=== PATIENT | male | born 1960 | race Caucasian/White ===

== ENCOUNTER 2016-11-29 06:17 | Day surgery (SDC) ==
[2016-11-29 08:24] LABS: IRON SATURATION 11 %; TIBC 222 ug/dL; TOTAL IRON 25 ug/dL (53-167); UNBOUND IRON 197 ug/dL (112-346)
[2016-11-29 08:37] LABS: PROTIME 10.2 Seconds (9.2-11.7)
[2016-11-29] MEDS ORDERED: ALBUMIN 25% IV ONE (12:00)
[2016-11-29 12:24] VITALS: BP 118/75
[2016-11-29 13:34] LABS: DIFF NEEDED? YES; WBC BF 363 /cumm
[2016-11-29 13:50] LABS: TOTAL PROT BODY FLUID 3.1 g/dL
[2016-11-29 13:56] LABS: MONOS 12 %; POLYS 88 %
--- NOTE | 2016-11-29 16:17 | Diag Imaging Result Document ---
PROCEDURE NAME: US PARACENTESIS - 11/29/2016 ULTRASOUND-GUIDED PARACENTESIS: COMPARISON: None. FINDINGS: The risks and benefits of the procedure were discussed with the patient. All questions were answered. Written and verbal informed consent was obtained. The right lower quadrant was chosen for aspiration. Ultrasound scanning demonstrated moderate to large ascites. Overlying skin was prepped and draped in sterile fashion. Anesthesia was achieved with injection of 7 mL of 1% lidocaine. The paracentesis catheter was advanced without difficulty until the return of ascites fluid. 7.5 L were withdrawn. The catheter was removed intact. The patient reported no symptoms from the procedure. IMPRESSION: Successful and uncomplicated ultrasound-guided paracentesis.
[2016-11-30 16:28] LABS: HEPATITIS PROFILE ACUTE SEE COMMENTS (())
== END 2016-11-29 12:30 | disposition home or self-care (01) ==
LOC: US 06:17
PROVIDERS: ATTEND Internal Medicine Gastroenterology
DX: R18.8 Other ascites (principal); R10.9 Unspecified abdominal pain; I10 Essential (primary) hypertension; Z79.899 Other long term (current) drug therapy; Z79.82 Long term (current) use of aspirin
CPT/HCPCS: 49083; 80074; 82042; 82150; 82390; 82728; 82945; 83516; 83540; 83550; 84157; 85610; 85730; 86038; 86255; 87070; 87205; 89051; P9047

== ENCOUNTER 2016-12-03 08:17 | Inpatient (IN) ==
[2016-12-03 09:14] LABS: MANUAL DIFF NEEDED? NO
[2016-12-03 09:22] LABS: BASO% 0.2 % (0.0-0.8); EOS# 0.16 X1000 (0.0-0.7); EOS% 1.9 % (0.0-10.0); HEMATOCRIT 44.2 % (42.0-52.0); HEMOGLOBIN 15.5 g/dL (14.0-18.0); IMM GRAN# 0.02 X1000 (0.0-0.04); IMM GRAN% 0.2 % (0.0-0.5); LYMPH# 0.89 X1000 (1.2-3.4); LYMPH% 10.8 % (20.5-51.1); MCH 30.9 PG (27-31); MCHC 35.1 g/dL (33-37); MONO# 1.26 X1000 (0.11-0.59); MONO% 15.3 % (1.7-9.3); MPV 9.4 FL (7.4-10.4); NEUT% 71.6 % (42.2-75.2); PLT 419 X1000 (130-400); RBC 5.02 XMIL (4.7-6.1)
[2016-12-03] MEDS ORDERED: ZOFRAN IV ONE (09:30)
--- NOTE | 2016-12-03 09:35 | PROVIDER DOCUMENTATION ---
HPI-Abdominal Pain/GI Problem - General Chief Complaint: Abdominal Pain Stated Complaint: ABD PAIN Time Seen by Provider: 12/03/16 09:09 Source: patient Allergies/Adverse Reactions: Patient Allergies Allergy/AdvReac Type Severity Reaction Status Date / Time No Known Allergies Allergy Verified 12/03/16 09:22 Home Medications: Home Medication List Medication Instructions Recorded Confirmed Last Taken Type Labetalol [Trandate] 200 mg PO BID 02/20/15 12/03/16 12/03/16 History Lisinopril 20 mg PO BID 02/20/15 12/03/16 12/03/16 History Amlodipine [Norvasc] 10 mg PO DAILY 11/29/16 12/03/16 12/02/16 History Aspirin 81 mg PO DAILY 11/29/16 12/03/16 11/22/16 History Gabapentin [Neurontin] 600 mg PO TID 11/29/16 12/03/16 12/03/16 History Pantoprazole [Protonix] 40 mg PO DAILY@0700 11/29/16 12/03/16 12/03/16 History Tamsulosin [Flomax] 0.4 mg PO QHS 11/29/16 12/03/16 12/03/16 History - History of Present Illness-ABD Nature of Presenting Problems: 56 y/o WM currently being evaluated for cirrhosis of the liver by Dr. Ballesteros, c /o abdominal pain. Tuesday he had a US guided paracentesis where 7.5 L was drained, there has been no evaluation of the fluid as of yet. Supposed to have EGD on Tuesday. He has history of senior care alcohol abuse, where up to 1 month ago, was drinking 8-12 beers daily. States he has had poor appetite, some days not eating anything, no BM in approx 5 days now and dark colored urine. States the abdominal pain moves in different locations, but mostly on the left side, starting in LUQ and radiating to the LLQ. He is on Labetolol 200 mg BID< Lisinopril 20 mg QD and Norvasc 10 mg QHS, with low BP in the ER today. States he begins to feel light headed when he stands up or sits up too quickly. Denies headache. Denies chest pain or sob, no ruq pain. Has been nauseated for a couple weeks now, denies vomiting. Denies fevers or chills. [place] like he's gained weight, but not as much as before Tuesday, and cannot articulate an amount of weight gained. Review of Systems - Adult - REVIEW OF SYSTEMS - ADULT Constitutional: reports: see HPI, lesli. denies: chills, fever Eyes: reports: no symptoms reported. denies: decreased vision, blurred vision, double vision, eye pain Ears, Nose, Mouth & Throat: reports: no symptoms reported. denies: ear pain, nose pain, throat pain Cardiovascular: reports: no symptoms reported. denies: chest pain, irregular heart rate, palpitations Respiratory: reports: no symptoms reported. denies: cough, shortness of breath , wheezing Gastrointestinal: reports: see HPI, abdominal pain, constipation, nausea, poor appetite. denies: diarrhea, vomiting Genitourinary: reports: no symptoms reported. denies: dysuria, discharge, frequency, flank pain, incontinence, urgency Musculoskeletal: reports: no symptoms reported. denies: bone pain, back pain, muscle aches Integumentary: reports: no symptoms reported. denies: rash Neurological: reports: no symptoms reported. denies: dizziness/vertigo, headache/migraines Psychiatric: reports: no symptoms reported Endocrine: reports: no symptoms reported Hematologic/Lymphatic: reports: no symptoms reported Allergic/Immunologic: reports: no symptoms reported All Other Systems: Reviewed and Negative Past History - Adult - PAST MEDICAL HISTORY-ADULT Review of Records: reports: Old Records Reviewed, Nursing Assessment Review, Medications Reviewed, Social history reviewed & non-contributory. Major Childhood Illnesses: reports: denies history Cardiovascular: reports: HTN Respiratory: reports: denies history Gastrointestinal: reports: liver disease Genitourinary: reports: other (BPH) Musculoskeletal: reports: denies history Neurological: reports: denies history Endocrine/Immune: reports: denies history Other Conditions: reports: denies history - PRIOR SURGERIES/PROCEDURES Surgical/Procedure History: reports: other (vasectomy) - IMMUNIZATION STATUS Childhood Immunizations: See Nurse Assessment Flu Vaccine: See Nurse Assessment - FAMILY HISTORY Family History: reviewed, not pertinent - SOCIAL HISTORY Smoking: less than 1 pack/day Provider spent 3-5 mins advising pt. on dangers of tobacco.: Discussed manners to quit use, and f/u contacts for add'l counseling. Substance Use: alcohol Alcohol Use Frequency: every day Number of drinks per typical drinking period:: 11-15 drinks Living Situation: family Physical Exam-General - PHYSICAL EXAM-ADULT Initial Vital Signs Reviewed: Yes - CONSTITUTIONAL General Appearance: appears well, alert, no apparent distress - EYES Eyes: PERRL/EOMI, pink conjunctivae - HEAD, EARS, NOSE, MOUTH & THROAT HENMT: normocephalic/atraumatic, moist mucous membranes, other (telangectasias on the cheeks) - NECK Neck: non-tender, full range of motion, supple, normal inspection - RESPIRATORY Respiratory: chest non-tender, lungs clear, normal breath sounds, no pleuratic chest pain, no respiratory distress, no accessory muscle use. negative: respiratory distress, decreased breath sounds, accessory muscle use, crackles, rales, rhonchi, wheezing - CARDIOVASCULAR Cardiovascular: normal peripheral pulses, regular rate, rhythm - GASTROINTESTINAL (ABDOMEN) Abdominal Exam: normal bowel sounds, non tender, soft, no pulsatile mass, hepatomegaly. negative: abdominal bruit, abnormal bowel sounds, distended, guarding, rigid, rebound, tenderness - MUSCULOSKELETAL Extremity: normal range of motion, non-tender, normal gait, no pedal edema Peripheral Pulses: radial (R): 2+, radial (L): 2+, dorsalis-pedis (R): 2+, dorsalis-pedis (L): 2+ - SKIN Integumentary: normal color, normal turgor, warm/dry - NEUROLOGIC Neurologic: grossly normal, no motor/sensory deficits - PSYCHIATRIC Psych/Mental Status: normal mood/affect, normal thought content, normal thought process, oriented x 3 Progress - PLAN OF CARE/RESULTS Progress/Plan/Lab Results: Vital Signs Pulse Pulse Pulse Pulse Resp BP BP 12/03/16 09:35 95 H 95 H 86 80/57 12/03/16 09:00 98 H 22 99/67 BP BP Pulse Ox 12/03/16 09:35 62/44 102/68 12/03/16 09:00 100 No Known Allergies Allergy (Verified 12/03/16 09:22) Labetalol [Trandate] 200 mg PO BID 02/20/15 Lisinopril 20 mg PO BID 02/20/15 Amlodipine [Norvasc] 10 mg PO DAILY 11/29/16 Aspirin 81 mg PO DAILY 11/29/16 Gabapentin [Neurontin] 600 mg PO TID 11/29/16 Pantoprazole [Protonix] 40 mg PO DAILY@0700 11/29/16 Tamsulosin [Flomax] 0.4 mg PO QHS 11/29/16 Dietary Diet NPO Start TueDec 03 0903 Laboratory 12/03/16 12/03/16 09:07 09:07 WBC 8.25 RBC 5.02 Hgb 15.5 Hct 44.2 MCV 88.0 MCH 30.9 MCHC 35.1 RDW Std Deviation 11.8 Plt Count 419 H MPV 9.4 Immature Gran % (Auto) 0.2 Neut % (Auto) 71.6 Lymph % (Auto) 10.8 L [place] % (Auto) 15.3 H Eos % (Auto) 1.9 Baso % (Auto) 0.2 Immature Gran # (Auto) 0.02 Neut # (Auto) 5.90 Lymph # (Auto) 0.89 L [place] # (Auto) 1.26 H Eos # (Auto) 0.16 Baso # (Auto) 0.02 Sodium 124 L Potassium 5.1 Chloride 84 L Carbon Dioxide 25 Anion Gap 15 BUN 8 Creatinine 0.6 L Estimated GFR/1.73 m2 > 60 BUN/Creatinine Ratio 13 Glucose 122 H Calculated Osmolality 249 Calcium 9.0 Total Bilirubin 0.70 AST 11 ALT 12 Alkaline Phosphatase 61 Total Protein 6.6 Albumin 3.1 L Globulin 3.5 Albumin/Globulin Ratio 0.9 Amylase 12 L Lipase 12 L Orders Category Date Time Status Cardiac Monitoring DIRECTED Care 12/03/16 10:23 Active ED: Orthostatic Vital Signs (E as directed Care 12/03/16 09:12 Active Saline Loc NOW Care 12/03/16 09:30 Active NPO Diet 12/03/16 09:03 Active FLAT/UPRIGHT ABD/1 VIEW CHEST [RAD] Stat Exams 12/03/16 09:30 Completed AMYLASE [CHEM] Stat Lab 12/03/16 09:07 Completed CBC WITH ELECTRONIC DIFF [HEME] Stat Lab 12/03/16 09:07 Completed COMPREHENSIVE METABOLIC PANEL [CHEM] Stat Lab 12/03/16 09:07 Completed LIPASE [CHEM] Stat Lab 12/03/16 09:07 Completed 0.9% Sodium Chloride Inj [Ns] 1,000 ml Med 12/03/16 09:37 Active IV 200 mls/hr Ondansetron [Zofran] Med 12/03/16 09:30 Discontinued 4 mg IV NOW ONE - XRAY 1 XRAY: Bilateral XRAY Study: Abdomen Impression: Abnormal (constipation) - CONSULTS/PCP/HOSPITALIST Notification #1 *Consult/PCP/Hospitalist*: Dr. Monahan, hospitalist Time Discussed: 10:56 Reason/Comments: dehydration, hyponatremia Consult Disposition: Admit Departure - Departure Time of Disposition Order: 10:21 DIAGNOSIS: Hyponatremia Disposition: ADMITTED INPATIENT 09 Certified Medical Emergency: Emergent Condition: Stable Referrals: Steffany Weeks MD [Primary Care Provider] - Attestation - Physician/ CARLEY Attestation Patient care was provided by Advanced Practice Provider:: Yes Advanced Practice Provider:: Meg Hauser Advanced Practice Provider documentation review:: The Mid-level provider documentation, treatment plan and medical decision making was reviewed by the physician who agrees with all treatment and medical decision making by the P.
[2016-12-03] MEDS ORDERED: NS 1,000 ML IV ONE (09:37)
--- NOTE | 2016-12-03 10:10 | Diag Imaging Result Document ---
PROCEDURE NAME: FLAT/UPRIGHT ABD/1 VIEW CHEST - 12/03/2016 FLAT AND UPRIGHT AND CHEST, THREE VIEWS: COMPARISON: The chest is compared to 02/20/2015. FINDINGS: The lungs are well expanded. The left hemidiaphragm is slightly elevated similar to the prior exam. There are calcified right hilar and subcarinal lymph nodes. No infiltrates. No cardiomegaly. No free air beneath the diaphragm. The bowel loops are not dilated. There is stool throughout the colon. No organomegaly. No abnormal abdominal or pelvic calcifications. There are degenerative spine changes with mild scoliosis. IMPRESSION: Constipation.
[2016-12-03 10:18] LABS: AGAP 15; ALBUMIN 3.1 g/dL (3.5-5.0); ALKALINE PHOSPHATASE 61 U/L (32-122); AMYLASE 12 U/L (20-200); BUN 8 mg/dL (8-22); CHLORIDE 84 mmol/L (98-107); COSMO 249; GOT 11 U/L (10-34); GPT 12 U/L (10-44); LIPASE 12 U/L (13-60); POTASSIUM 5.1 mmol/L (3.5-5.1); SODIUM 124 mmol/L (136-145); TCO2 25 mmol/L (25-35); TOTAL PROTEIN 6.6 g/dL (6.3-8.3)
[2016-12-03] MEDS: ULTRAM PO PRN ×2 (15:46→21:22)
[2016-12-03] MEDS: NS 1,000 ML IV SCH ×2 (15:46→23:49)
[2016-12-03] MEDS: NICODERM PATCH TD SCH (15:46)
[2016-12-03] MEDS: LACTULOSE PO SCH ×2 (15:46→21:22)
[2016-12-03] MEDS: NEURONTIN PO SCH (16:52)
[2016-12-03] MEDS: ZOFRAN IV PRN ×2 (16:57→21:22)
--- NOTE | 2016-12-03 17:14 | HISTORY AND PHYSICAL ---
PRIMARY CARE PROVIDER: Dr. Steffany Weeks. PRIMARY CARE PROCESS MANAGER: Dr. Kaur. PRIMARY UROLOGIST: Dr. Rosales. CHIEF COMPLAINT: Abdominal pain, decreased appetite with nausea, vomiting and constipation. HISTORY OF PRESENT ILLNESS: Mr. Fredy Sheehan is a 56-year-old, male with a history of alcohol abuse, now with cirrhosis and ascites, history of hypertension, BPH, and GERD, who recently had an ultrasound-guided paracentesis on 11/29/2016 in which 7.5 L of ascites fluid was drawn. He states that since then, he has been having abdominal pain, mostly in the left upper and lower quadrant but moves, decreased appetite, some nausea and vomiting, and no bowel movement in the last 5 days or longer. He also states that his urine is dark. He gets lightheaded when he is standing. He has a history of hypertension and takes multiple antihypertensives, all of which he states he did take this morning, and he has had issues with hypotension. In a standing position his blood pressure dropped to 62/44. Abdominal x-ray shows that he has constipation. We will admit to a [facility] given the significant hypotension. Will do IV fluid hydration, hold all of his antihypertensive, give him on soapsuds enema, and start him on lactulose twice daily, and consult his fish protector. Assessment is that he has a soft abdomen, positive bowel sounds x4, and is currently nontender with palpation. He states that it comes and goes and moves positions from the areas of pain. PAST MEDICAL HISTORY: Hypertension, cirrhosis, BPH with elevated PSAs Dr. Rosales is following him for, thyroid cyst, GERD. SOCIAL HISTORY: Drinks anywhere from 8 to 9 beers a day for 10-15 years. He has had no beers in the last month. He smokes 1 pack per day for 25 years. He denies any illicit drug use, and he lives with his . SURGICAL HISTORY: Vasectomy and prostate biopsies. FAMILY HISTORY: Father had coronary artery disease and prostate cancer. ALLERGIES: No known drug allergies. HOME MEDICATIONS: Lisinopril 20 mg p.o. twice daily. Labetalol 200 mg p.o. twice daily. Aspirin 81 mg p.o. daily. Flomax 0.4 mg p.o. nightly. Neurontin 600 mg p.o. 3 times daily. Norvasc 10 mg p.o. daily. Protonix 40 mg p.o. daily. REVIEW OF SYSTEMS: Fourteen point review of systems were complete and all were negative except for those mentioned in above HPI. LABORATORY DATA: White blood cells 8000, hemoglobin 15, hematocrit 44, platelet count 419,000. Sodium 124, potassium 5.1, BUN 8, creatinine 0.6, glucose 122. Total bilirubin 0.7, AST 11, ALT 12, albumin 3.1. Amylase 12, lipase 12. IMAGING: Abdominal x-ray: Constipation, and slight elevation of the left hemidiaphragm. PHYSICAL EXAMINATION: VITAL SIGNS: Temperature is 97.7 degrees, respiratory rate 14, blood pressure 108/80, saturation 98% on room air. Orthostatic vital signs: Supine heart rate 86, blood pressure 102/68, sitting heart rate 95, blood pressure 80/57, and standing heart rate 95, blood pressure 62/44. He is 6 feet 2 inches tall, 191 pounds, BMI is 24.5. GENERAL: Mr. Fredy Sheehan is a 56-year-old, male, in no acute distress. He is able answer all questions appropriately. HEENT: Atraumatic, normocephalic. Pupils equal, round, reactive to light. Extraocular movements intact. NECK: No JVD or carotid bruits noted. CARDIOVASCULAR: S1, S2. Regular rate and rhythm. No rubs, gallops, murmurs. PULMONARY: Clear to auscultation. Bilateral breath sounds. No accessory muscle use or work of breathing noted. GI: Soft, nontender, nondistended. Positive bowel sounds x4. EXTREMITIES: No edema noted. +2 dorsalis and radial pulses. SKIN: Warm, dry, intact. Did not appear to be too icteric. ASSESSMENT AND PLAN: 1. Abdominal pain. Abdominal x-ray shows constipation. He did recently have a paracentesis. We will consult Gastroenterology to follow up. Will do soapsuds enema and start on lactulose twice daily and clear liquid diet. 2. Hypertension, currently with orthostatic hypotension secondary to dehydration and taking his antihypertensives today. We will hold antihypertensives, give him IV fluid hydration, and do orthostatics starting tomorrow. 3. Cirrhosis of the liver. Liver enzymes are actually negative. He has been followed by Dr. Kaur for his liver. Recently had a paracentesis this past Tuesday. Apparently he is scheduled for next Tuesday for EGD. 4. Gastroesophageal reflux disease. We will do proton pump inhibitor. 5. Benign prostatic hypertrophy with elevated prostate-specific antigens. He has had a biopsy in the past that was negative. He is followed by Dr. Rosales as outpatient for this. 6. Hyponatremia. Should improve with IV fluid hydration. 7. Thrombocytosis. This is likely secondary to inflammatory response. He is afebrile and his white count is normal. 8. Deep venous thrombosis prophylaxis SCDs. 9. Tobacco abuse. Cessation discussed and started with nicotine patch. Dictated by EVI Adams for Franko Leonard MD
[2016-12-03] MEDS: LEVAQUIN 500 MG/D5W 100 ML IV SCH (23:49)
[2016-12-04 05:11] LABS: MANUAL DIFF NEEDED? NO
[2016-12-04 05:17] LABS: BASO% 0.3 % (0.0-0.8); EOS# 0.22 X1000 (0.0-0.7); EOS% 3.3 % (0.0-10.0); HEMATOCRIT 38.1 % (42.0-52.0); HEMOGLOBIN 13.3 g/dL (14.0-18.0); IMM GRAN# 0.03 X1000 (0.0-0.04); IMM GRAN% 0.4 % (0.0-0.5); LYMPH# 0.89 X1000 (1.2-3.4); LYMPH% 13.3 % (20.5-51.1); MCH 30.9 PG (27-31); MCHC 34.9 g/dL (33-37); MCV 88.6 FL (81-99); MONO% 17.9 % (1.7-9.3); MPV 9.4 FL (7.4-10.4); NEUT% 64.8 % (42.2-75.2); PLT 358 X1000 (130-400)
[2016-12-04 05:28] LABS: INR 1.13; PTT 33.2 Seconds (22.0-36.0)
[2016-12-04 05:43] LABS: AGAP 13; ALBUMIN 2.4 g/dL (3.5-5.0); ALKALINE PHOSPHATASE 50 U/L (32-122); BUN 8 mg/dL (8-22); CHLORIDE 88 mmol/L (98-107); COSMO 250; GOT 11 U/L (10-34); GPT 10 U/L (10-44); MAGNESIUM 1.7 mg/dL (1.5-2.7); SODIUM 125 mmol/L (136-145); TCO2 24 mmol/L (25-35); TOTAL BILIRUBIN 0.49 mg/dL (0.20-1.00); TOTAL PROTEIN 5.4 g/dL (6.3-8.3)
[2016-12-04] MEDS: NS 1,000 ML IV SCH (05:49)
[2016-12-04] MEDS: PROTONIX PO SCH (06:17)
[2016-12-04] MEDS: NICODERM PATCH TD SCH (08:06)
[2016-12-04] MEDS: LACTULOSE PO SCH ×2 (08:07→17:19)
[2016-12-04] MEDS: NEURONTIN PO SCH ×3 (08:08→16:31)
[2016-12-04] MEDS ORDERED: ASPIRIN PO SCH (09:00)
--- NOTE | 2016-12-04 12:05 | PROGRESS NOTE ---
DATE: 12/04/2016 SUBJECTIVE: This patient states that he is feeling better, he is hungry. He had 2 bowel movements today. I told him that he needs to have at least 2-3 bowel movements per day, and I also explained to him and his the risk of having constipation and the increase of ammonia levels. They seem to understand. He is still complaining of abdominal discomfort. He denies nausea or vomiting, no fevers, no chills. Pending ultrasound today, recommended by gastroenterology department. OBJECTIVE: Vital signs: Temperature 98.2, pulse 88, respiratory rate 20, blood pressure 122/67, oxygen saturation 100% on room air. HEENT: Head normocephalic, no trauma, KRISTIN. Neck: Supple, no JVD, no masses. Central trachea. Chest: Clear to auscultation, mild rales at the bases. No wheezing. Abdomen: Soft, distended, positive wave sign. Positive bowel sounds. Mild pain mostly at the epigastric area. Extremities: No edema, no clubbing, no cyanosis. Neurological: The patient is alert and oriented x3. No focal neurologic deficits. LABORATORY: WBC 6.7, hemoglobin 13.3, hematocrit 38.1, platelets 358. PT 12, INR 1.1, PTT 33.2. Sodium 125, potassium 4. chloride 88, bicarbonate 24, BUN 8, creatinine 0.5, glucose 96, calcium 8. Magnesium 1.7, albumin 2.4. TSH 1.04. ASSESSMENT AND PLAN: 1. Abdominal pain. Abdominal x-ray showed constipation, but this patient had 2 bowel movements today. He recently had a paracentesis done as an outpatient, and apparently he also received albumin. Will continue with lactulose. 2. Hypertension. He is not on any antihypertensive medications right now, and the blood pressure has been stable. Will continue to monitor. 3. Cirrhosis of the liver. He is following with Dr. Kaur for his liver. The gastroenterology department has been consulted. Probably, this patient will be scoped either here or as an outpatient. 4. Gastroesophageal reflux disease. Continue with PPIs. 5. Benign prostatic hypertrophy with elevated PSA. Dr. Rosales is following this patient as an outpatient. 6. Hyponatremia. This is chronic. Will continue to monitor. 7. Thrombocytosis, resolved. 8. DVT prophylaxis will be provided with SCDs. 9. Tobacco abuse. This patient has been highly advised against tobacco abuse. Will continue with daily cessation education. 10.Dehydration, resolved. The blood pressure is much better. Normal vital signs. I will stop the IV fluids. This patient is already on a diet.
--- NOTE | 2016-12-04 12:45 | Diag Imaging Result Document ---
PROCEDURE NAME: US ABDOMEN-COMPLETE - 12/04/2016 COMPLETE ABDOMINAL ULTRASOUND: COMPARISON: None available. FINDINGS: Reportedly, the patient was not n.p.o. and the gallbladder is contracted. No gallstones are identified and no definite wall thickening is identified. Sonographic Bernard's sign was reported to be negative. The common bile duct is normal in diameter. There is ascites tracking around the liver. The liver echotexture is grossly unremarkable. Portal venous flow is hepatopetal. The pancreas is largely obscured by bowel gas. The visualized portions are grossly unremarkable. The aorta and IVC are also largely obscured. The visualized portions are unremarkable. The spleen and kidneys are grossly unremarkable. IMPRESSION: 1. Ascites around the liver. 2. Contracted gallbladder as the patient was not n.p.o. It is essentially unremarkable, otherwise. 3. Not mentioned above, the spleen measures 10.4 x 10.1 x 4.4 cm.
[2016-12-04] MEDS ORDERED: FLUZONE QUAD 2016-2017 SYRINGE IM ONE (14:27)
[2016-12-04] MEDS ORDERED: PNEUMOVAX 23 IM ONE (14:30)
[2016-12-04 16:57] LABS: URINE CULTURE NEEDED? NO; URINE MICRO REVIEW NEEDED? NO; URINE SOURCE CATH
[2016-12-04 17:00] LABS: BILIRUBIN URINE SMALL (NEGATIVE); BLOOD URINE NEGATIVE (NEGATIVE); COLOR YELLOW; GLUCOSE URINE NEGATIVE (NEGATIVE); LEUKOCYTES URINE NEGATIVE (NEGATIVE); NITRITE URINE NEGATIVE (NEGATIVE); PH URINE 6.5; PROTEIN URINE 30 mg/dL (NEGATIVE); SP GRAVITY URINE 1.019; TURBIDITY URINE CLEAR (CLEAR); UROBILINOGEN URINE 6 mg/dL (NORMAL)
[2016-12-04 17:02] LABS: UR EPITHELIAL CELLS <10 /HPF (<10); URINE BACTERIA NEGATIVE /HPF; URINE RBC <10 /HPF (<10); URINE WBC <10 /HPF (<10)
[2016-12-04] MEDS: ALBUMIN 25% IV SCH (17:20)
[2016-12-04] MEDS: LEVAQUIN 500 MG/D5W 100 ML IV SCH (21:30)
--- NOTE | 2016-12-05 04:46 | CONSULTATION ---
DATE OF CONSULTATION: 12/04/2016 PRIMARY AUTOMOBILE BUMPER STRAIGHTENER: Dr. Kaur. PRIMARY PHYSICIAN: Dr. Steffany Weeks. REASON FOR CONSULTATION: Ascites. HISTORY OF PRESENT ILLNESS: Mr. Sheehan is a 56-year-old male who was admitted on 12/03/2016 for abdominal pain, worsening abdominal distention, nausea, vomiting, constipation. He was recently diagnosed with liver cirrhosis and was following up with Dr. Kaur as an outpatient. Dr. Kaur was performing chronic liver disease workup which has not been discussed with him yet. He had a paracentesis done on 11/29/2016 and 7.5 L of ascitic fluid was drained. Since that time, he complained of intermittent abdominal pain which got worse in the left upper and left lower quadrant with decreased p.o. intake and loss of appetite, and worsening nausea and vomiting, and constipation with no BM for the last 5 days. Because of these issues, he became dehydrated and was admitted to the hospital. During this admission, he had abdominal ultrasound done which showed ascites around the liver, contracted gallbladder, and the spleen size measuring 10.4 x 10.1 x 4.4 cm. His liver echotexture was noted to be grossly unremarkable. Common bile duct was noted to be normal in diameter. Since being in the hospital, the patient has been treated with IV fluids, IV antiemetics, and lactulose. He has been feeling a little better. The patient denies any vomiting, vomiting blood, or passing black stools, or blood in the stools. PAST MEDICAL HISTORY: 1. Hypertension. 2. Cirrhosis, new diagnosis, unclear etiology, although the patient has a history of chronic alcohol abuse. He was drinking 6-8 beers a day for many years and quit about a month ago. 3. BPH with elevated PSA. Dr. Rosales is following him. 4. Thyroid cyst. 5. Reflux disease. 6. Ascites. 7. Chronic constipation. SOCIAL HISTORY: He used to drink 6-8 beers a day for 10-15 years, quit about a month ago. He smokes 1 pack a day for 25 years. He denies any illicit drug use. He is . He has a supportive and son who were present at bedside. PAST SURGICAL HISTORY: Vasectomy and prostate biopsy. FAMILY HISTORY: Coronary artery disease and prostate cancer in the family. ALLERGIES: No known drug allergies. MEDICATIONS: Medications at home were reviewed. Medications in the hospital showed tramadol, Zofran, lactulose 30 mL p.o. b.i.d., NicoDerm patch, gabapentin, Protonix, Levaquin 500 mg IV once daily. DIET: He is on a GI soft diet. REVIEW OF SYSTEMS: Denies any fevers, rigors, chills, chest pain, shortness of breath, dyspnea at rest. Does complain of feeling weak and tired. He did complain of nausea and decreased p.o. intake. He has complained of constipation. He still has not had a bowel movement documented. He denies any blood in the stools or passing blood or vomiting blood. Denies any neurologic complaints. PHYSICAL EXAMINATION: Vital Signs: Temperature of 98.2 degrees, pulse rate of 113, blood pressure of 107/70, respiratory rate 20, heart rate 113, and saturating 99% on nasal cannula. Body weight of 198 pounds 8 ounces. BMI of 25.5 kg/m2. General Appearance: Moderate built, moderately nourished, lying in bed, in no acute distress. HEENT: Mild pallor. No icterus. Pupils equal, reactive to light and accommodation. Neck: Supple. Chest: Decreased at the bases. Cardiovascular: Tachycardic. Abdomen: Abdominal distention noted. Positive ascites. No rebound. No guarding. Mild discomfort on deep palpation. Extremities: No cyanosis, clubbing. Neurologic: He is alert, awake, oriented x3. LABS: Hemoglobin and hematocrit are 13.3 and 38.1, white count of 6.7, platelet count of 358,000, MCV of 88.6. INR of 1.13, PT of 12, PTT of 33.2. Sodium 135, potassium 4, chloride of 88, bicarb of 24, anion gap of 13, BUN of 8, creatinine of 0.5, glucose of 96, calcium of 8. Magnesium 1.7, total bilirubin is 0.49, AST 11, ALT 10, alkaline phosphatase 50, total protein 5.4, albumin of 2.4, ammonia of 21, amylase of 12, lipase of 12. TSH 1.04. Ultrasound as described in HPI. Hepatitis panel was nonreactive. TERESA was negative. Antimitochondrial antibody negative. Antismooth muscle antibody was negative. Antiendomysial antibody was negative. Anti-tissue transglutaminase antibody was negative. His toxicology screen was positive in February of 2015 for amphetamines. His fluid studies done on ascitic tap on 11/29/2016 showing white count of ascitic fluid 363 with polymorphonuclear cells of 88%. This is consistent with SBP. His albumin at that time in the fluid was 1.8 and on 12/03/2016, his albumin was 3.1 so his SAAG was more than 1.1, raising question of portal hypertension, although the ultrasound showing no gross liver abnormality and the spleen size was normal, and the flow in portal venous hepatopetal. His ceruloplasmin level was also normal at 31. Iron study showing percent is 11%, ferritin of 480. IMPRESSION AND PLAN: 1. Patient likely has a spontaneous bacterial peritonitis per the fluid studies. We will start him on Levaquin once daily. We will also give him albumin 50 g intravenous once every 3 days. We will keep him on intravenous fluids. We will continue a gastrointestinal soft diet. We will continue him on Protonix once daily. We will increase the lactulose to 30 mL three times a day. 2. We will avoid any hepatotoxic drugs. 3. We are still uncertain about the primary etiology of his ascites. We need to follow up on the cytology studies. At some point, he may need a liver biopsy to evaluate further. We will need to also exclude other possible reasons of ascites like heart conditions as well. This will be mediated by Dr. Kaur when he returns on Tuesday. Please, also check for alpha 1 antitrypsin level. [facility]
[2016-12-05 05:27] LABS: MANUAL DIFF NEEDED? NO
[2016-12-05 05:33] LABS: BASO% 0.2 % (0.0-0.8); EOS# 0.21 X1000 (0.0-0.7); EOS% 2.6 % (0.0-10.0); HEMATOCRIT 38.2 % (42.0-52.0); HEMOGLOBIN 13.4 g/dL (14.0-18.0); IMM GRAN# 0.03 X1000 (0.0-0.04); IMM GRAN% 0.4 % (0.0-0.5); LYMPH# 0.74 X1000 (1.2-3.4); LYMPH% 9.2 % (20.5-51.1); MCH 30.8 PG (27-31); MCHC 35.1 g/dL (33-37); MCV 87.8 FL (81-99); MONO# 1.31 X1000 (0.11-0.59); MONO% 16.3 % (1.7-9.3); MPV 9.5 FL (7.4-10.4); NEUT% 71.3 % (42.2-75.2); PLT 329 X1000 (130-400); RBC 4.35 XMIL (4.7-6.1)
[2016-12-05] MEDS: ULTRAM PO PRN ×2 (05:52→20:57)
[2016-12-05] MEDS: PROTONIX PO SCH ×2 (05:53→07:31)
[2016-12-05 05:57] LABS: AGAP 15; BUN 7 mg/dL (8-22); CALCIUM 8.6 mg/dL (8.8-10.2); CHLORIDE 87 mmol/L (98-107); COSMO 248; POTASSIUM 4.1 mmol/L (3.5-5.1); SODIUM 124 mmol/L (136-145); TCO2 22 mmol/L (25-35)
[2016-12-05] MEDS: NEURONTIN PO SCH ×3 (09:40→20:58)
[2016-12-05] MEDS: ALBUMIN 25% IV SCH (09:40)
[2016-12-05] MEDS: NICODERM PATCH TD SCH (09:40)
[2016-12-05] MEDS: LACTULOSE PO SCH ×3 (11:11→20:57)
--- NOTE | 2016-12-05 11:27 | PROGRESS NOTE ---
DATE: 12/05/2016 SUBJECTIVE: This patient states that he is still having abdominal pain. He is tolerating p.o. He has been having bowel movement, the last one was today in the morning. Also he has been passing gas. This patient was initially admitted to the [facility] because of dehydration and low blood pressure. His blood pressure was initially in the 90s and low 100s, but at this moment his blood pressure has been consistently between 120s and 140s. OBJECTIVE: Vital Signs: Temperature 98 degrees, pulse 88, respiratory rate 16, blood pressure 122/79. Oxygen saturation 99 on room air. HEENT: Head normocephalic. No trauma. Pupils equal, round, and reactive to light and accommodation. Neck: Supple. No jugular venous distention. No masses. Central trachea. Chest: Clear to auscultation. Mild rales at the bases. No wheezing. Abdomen: Soft, distended, positive wave sign, positive bowel sounds. Mild pain mostly at the epigastric area. Extremities: Trace edema. No clubbing. No cyanosis. Neurological Examination: The patient is alert and oriented x3. No focal neurological deficits. LABORATORY: WBC 8, hemoglobin 13.4, hematocrit 38.2. Sodium 124, chloride 87, bicarbonate 22, BUN 7, creatinine 0.4. Glucose 101, calcium 8.6. ASSESSMENT AND PLAN: 1. Abdominal pain. Gastroenterology department evaluated this patient. This abdominal pain is likely related to spontaneous bacterial peritonitis. We will continue with levofloxacin daily. Gastroenterology Department also started this patient on albumin. He has been having bowel movements daily. 2. Hypertension. His blood pressure has been stable without any medication. It has been between 120 and 140, and the urine output looks adequate. 3. Suspected cirrhosis of the liver. Dr. Kaur is taking care of this patient as an outpatient. Probably this patient will be scoped either here or as an outpatient. We will continue to monitor. 4. Gastroesophageal reflux disease. Continue with PPIs. 5. Benign prostatic hypertrophy with elevated PSA. Dr. Rosales is following this patient as an outpatient. 6. Hyponatremia. This is chronic. We will continue to monitor. 7. Thrombocytosis, resolved. 8. Deep venous thrombosis prophylaxis. Will be provided with SCDs. 9. Tobacco abuse. This patient has been highly advised against tobacco abuse. We will continue with daily cessation education. 10. Dehydration, resolved. The blood pressure is stable. Normal vital signs. IV fluid were stopped yesterday. This patient is tolerating p.o. without any problems. The urine output has been adequate as well. CRITICAL CARE TIME: Thirty minutes. This patient was initially transferred to the [facility] because of low blood pressure, but now the blood pressure has been stable. I will transfer this patient to the medical floor for further treatment.
[2016-12-05] MEDS: LEVAQUIN 500 MG/D5W 100 ML IV SCH (20:57)
[2016-12-06] MEDS: LEVAQUIN 500 MG/D5W 100 ML IV SCH ×2 (02:09→22:10)
[2016-12-06] MEDS: PROTONIX PO SCH ×2 (05:39→06:31)
[2016-12-06 05:50] LABS: MANUAL DIFF NEEDED? NO
[2016-12-06 05:56] LABS: BASO% 0.4 % (0.0-0.8); EOS# 0.23 X1000 (0.0-0.7); EOS% 3.2 % (0.0-10.0); HEMATOCRIT 37.7 % (42.0-52.0); HEMOGLOBIN 13.3 g/dL (14.0-18.0); IMM GRAN# 0.04 X1000 (0.0-0.04); IMM GRAN% 0.6 % (0.0-0.5); LYMPH% 13.8 % (20.5-51.1); MCH 31.1 PG (27-31); MCHC 35.3 g/dL (33-37); MCV 88.1 FL (81-99); MONO# 1.29 X1000 (0.11-0.59); MONO% 17.8 % (1.7-9.3); MPV 9.1 FL (7.4-10.4); NEUT% 64.2 % (42.2-75.2); PLT 337 X1000 (130-400); RBC 4.28 XMIL (4.7-6.1)
[2016-12-06 06:17] LABS: AGAP 14; BUN 5 mg/dL (8-22); CALCIUM 8.5 mg/dL (8.8-10.2); CHLORIDE 86 mmol/L (98-107); COSMO 251; POTASSIUM 4.3 mmol/L (3.5-5.1); SODIUM 126 mmol/L (136-145); TCO2 26 mmol/L (25-35)
[2016-12-06] MEDS ORDERED: SAMSCA PO ONE (09:00)
[2016-12-06] MEDS: LACTULOSE PO SCH ×3 (09:12→16:30)
[2016-12-06] MEDS: NEURONTIN PO SCH ×4 (09:13→16:30)
[2016-12-06] MEDS: NICODERM PATCH TD SCH (09:13)
[2016-12-06] MEDS: ALBUMIN 25% IV SCH (09:13)
[2016-12-06] MEDS: ULTRAM PO PRN ×2 (09:55→22:10)
[2016-12-06 11:45] LABS: HEPATITIS PROFILE ACUTE SEE COMMENTS (())
--- NOTE | 2016-12-06 16:42 | PROGRESS NOTE ---
DATE: 12/06/2016 SUBJECTIVE: The patient complains of abdominal pain and distention. OBJECTIVE: Vital signs: Temperature 98 degrees, blood pressure 136/69, heart rate 93, respirations 18, O2 saturations 96% on room air. General: This is an elderly male lying in bed in no acute distress. Head: Normocephalic, atraumatic. Heart: S1, S2. Normal. Regular rate and rhythm . Lungs: Clear to auscultation bilaterally. No wheezes, no rales. No rhonchi. Abdomen: Distended. Diffuse tenderness. Positive bowel sounds. Extremities: No edema. No cyanosis. No calf tenderness. Neuro: The patient is alert, oriented x3 . LABS: White blood cell count 7.2, hemoglobin 13, hematocrit 37, platelets 337. Sodium 126 potassium 4.3, chloride 86, CO2 26, BUN 5, creatinine 0.5, glucose 101. ASSESSMENT AND PLAN: 1. Ascites. The patient will most likely require a paracentesis. Will defer to the transport tank technician regarding this. 2. Spontaneous bacterial peritonitis. Continue on Levaquin. 3. Hyponatremia. Will give the patient a dose of samsca. 4. Tobacco dependence. Continue on the NicoDerm patch. 5. Deep vein thrombosis prophylaxis. Continue with SCDs. [facility]
[2016-12-06] MEDS ORDERED: DULCOLAX PR ONE (18:52)
--- NOTE | 2016-12-06 20:59 | PROGRESS NOTE ---
DATE: 12/06/2016 SUBJECTIVE: Patient is complaining of abdominal discomfort and swelling. He has not been able to eat much because of the swelling pressing on his stomach and resulting in postprandial abdominal discomfort. He has not been nauseated, has not been vomiting. He had some bowel movement yesterday but has not had any results from his lactulose. He is not confused and responding to questions appropriately. OBJECTIVE: Vitals: Temperature is 98.6 degrees and pulse is 93 per minute, breathing at a rate of 18, blood pressure was 136/69. Chest: Is clear to auscultate. Heart: Is audible, no murmur. Abdomen: Distended and tense. Tympanic. There is some ascites. LABORATORY: Reviewed which showed a sodium of 126, potassium 4.3, chloride 86, bicarb 26, BUN is 5, creatinine 0.5. WBC 7.26, hemoglobin 13.3, hematocrit 37.7, MCV 88.1, and platelets were 337. IMPRESSION: Tense ascites. Possible cirrhosis of the liver with portal hypertension. His serum ascites albumin gradient was more than 1.1. Interestingly, he does not have thrombocytopenia, his albumin level is low though. He is presenting a mixed picture. The total white blood cell count and the neutrophil count in his ascitic fluid drawn earlier did showed possibility of spontaneous bacterial peritonitis, but unfortunately cultures were not done. He is currently on antibiotic. I will give him a Dulcolax suppository to relieve some of his gaseous distention of the abdomen and if he continues to have some fluid, he may need repeat paracentesis for therapeutic purposes. That will also give us an opportunity to reexamine the fluid and also culture the fluid. In the meantime, I will encourage him to stay on low fluid consumption, approximately 1.5-2 L a day and reduce salt intake and switch him to 2 g salt diet. We will continue to follow. I have answered all the pertinent questions.
[2016-12-06] MEDS: ZOFRAN IV PRN (21:29)
[2016-12-07] MEDS: PROTONIX PO SCH (06:12)
[2016-12-07 06:27] LABS: HEMATOCRIT 40.1 % (42.0-52.0); HEMOGLOBIN 13.9 g/dL (14.0-18.0); MCH 31.3 PG (27-31); MCHC 34.7 g/dL (33-37); MCV 90.3 FL (81-99); MPV 9.4 FL (7.4-10.4); RBC 4.44 XMIL (4.7-6.1)
[2016-12-07 06:40] LABS: AGAP 14; ALBUMIN 3.8 g/dL (3.5-5.0); BUN 5 mg/dL (8-22); CALCIUM 9.7 mg/dL (8.8-10.2); CHLORIDE 88 mmol/L (98-107); COSMO 253; POTASSIUM 5.5 mmol/L (3.5-5.1); SODIUM 127 mmol/L (136-145); TCO2 25 mmol/L (25-35)
[2016-12-07] MEDS: ALBUMIN 25% IV SCH (08:23)
[2016-12-07] MEDS: ZOFRAN IV PRN ×2 (08:23→15:59)
[2016-12-07] MEDS: NICODERM PATCH TD SCH (08:23)
[2016-12-07] MEDS: NEURONTIN PO SCH ×3 (08:23→16:22)
[2016-12-07] MEDS: LACTULOSE PO SCH ×3 (08:24→16:21)
[2016-12-07] MEDS ORDERED: GOLYTELY PO ONE (14:00)
--- NOTE | 2016-12-07 15:32 | ECHO REPORT ---
ORDER DATE: 12/07/2016 ECHOCARDIOGRAPHIC MEASUREMENTS: 1. Interventricular septum 1.5. 2. Left ventricular posterior wall 1.5. 3. Diastolic diameter 3. 4. Left atrium 4.3. 5. Aorta 4. SUMMARY OF 2-DIMENSIONAL IMAGIN. Technically suboptimal study. Poor acoustic window. 2. Normal left ventricular cavity size. Estimated ejection fraction of 60%. Endocardium not well visualized in all views. 3. Mitral valve was normal. Tricuspid valve was normal. 4. There is trace to mild mitral regurgitation. 5. Peak velocity across the aortic valve was less than 2 m/sec. There is no aortic stenosis or regurgitation. 6. There is trace tricuspid regurgitation. Peak velocity across the tricuspid valve less than 2 m/sec. 7. There is no pericardial effusion or obvious intracardiac mass or thrombus seen.
--- NOTE | 2016-12-07 16:03 | PROGRESS NOTE ---
DATE: 12/07/2016 SUBJECTIVE: Patient reports improvement in his abdominal swelling. He tells me that after Dulcolax suppository he did have 2 small bowel movements and notices less tense abdomen and there is less discomfort as well. He has been able to keep some food down. Denies any nausea, vomiting however he has not had a good bit of bowel movements. OBJECTIVE: Vitals: Temperature is 98.6 degrees, pulse is 123, blood pressure was 98/70. Abdomen: Remains distended but softer than yesterday. Nontender. Bowel sounds are audible. Extremities: No pedal edema noted. LABS: Reviewed which showed WBC of 8.79, hemoglobin 13.9, hematocrit 40.1. Sodium 127, potassium 5.5, chloride 88, BUN is 5, creatinine 0.5. CEA level 1.3. PSA level was 5.01 and the cytology report from the paracenteses that he had before his admission to the hospital came back positive for malignancy. IMPRESSION: Malignant ascites primary unknown. The special staining suggestive of possible adenocarcinoma however further workup is needed. I will proceed with EGD and colonoscopy. In the meantime, I would resume his IV fluid as well as cut down his diuretic and resume his regular diet. I have also gotten a consult from oncologist Dr. Wilkes to see and depending on the findings of endoscopy and suggestion for Dr. Wilkes further plans be made.
--- NOTE | 2016-12-07 16:05 | PROGRESS NOTE ---
DATE: 12/07/2016 SUBJECTIVE: The patient complains of abdominal pain and distention. He denies having any diarrhea or vomiting. OBJECTIVE: Vital Signs: Temperature 98.6 degrees, blood pressure 136/69, heart rate 93, respirations 18, O2 saturations 98% on room air. General: This is an elderly male, lying in bed, in no acute distress. Head: Normocephalic atraumatic. Heart: S1, S2. Normal. Regular rate and rhythm. Lungs: Clear to auscultation bilaterally. No wheezes, no rales. No rhonchi. Abdomen: Positive bowel sounds. Firm, distended. Extremities: No edema. No cyanosis. No calf tenderness. Neurologic: The patient is alert and oriented x3. LABS: White blood cell count 8.7, hemoglobin 13, hematocrit 40, platelets 334,000. Sodium 127, potassium 5.5, chloride 88, CO2 25, BUN 5, creatinine 0.5, glucose 105. ASSESSMENT AND PLAN: 1. New onset ascites. Management as per the collar fuser. The patient is scheduled for an EGD and colonoscopy tomorrow. 2. Chronically elevated PSA. Aware. The patient is followed by Dr. Rosales as outpatient. 3. Hyponatremia. Slowly improving. We will continue to monitor closely for improvement. 4. Tobacco dependence. Continue on the NicoDerm patch. 5. SBP. Continue on Levaquin.
[2016-12-07] MEDS: D5 NS 1,000 ML IV SCH ×2 (16:07→23:20)
[2016-12-07] MEDS ORDERED: SENOKOT PO ONE ×2 (17:05→22:00)
[2016-12-07] MEDS ORDERED: DULCOLAX PO ONE ×2 (17:37→21:00)
[2016-12-07] MEDS: LEVAQUIN 500 MG/D5W 100 ML IV SCH (22:02)
[2016-12-07] MEDS: NORCO-5 PO PRN (22:03)
[2016-12-08] MEDS: NORCO-5 PO PRN (03:55)
[2016-12-08] MEDS ORDERED: FLEET ENEMA PR ONE (06:21)
[2016-12-08 06:23] LABS: HEMATOCRIT 38.6 % (42.0-52.0); HEMOGLOBIN 13.3 g/dL (14.0-18.0); MCH 31.1 PG (27-31); MCHC 34.5 g/dL (33-37); MCV 90.4 FL (81-99); MPV 9.4 FL (7.4-10.4); RBC 4.27 XMIL (4.7-6.1)
[2016-12-08] MEDS: PROTONIX PO SCH (06:23)
[2016-12-08 06:49] LABS: AGAP 13; ALBUMIN 3.6 g/dL (3.5-5.0); BUN 7 mg/dL (8-22); CHLORIDE 88 mmol/L (98-107); COSMO 252; POTASSIUM 4.8 mmol/L (3.5-5.1); SODIUM 126 mmol/L (136-145); TCO2 25 mmol/L (25-35)
[2016-12-08] MEDS ORDERED: REGLAN PO ONE (08:49)
[2016-12-08] MEDS: D5 NS 1,000 ML IV SCH (09:23)
[2016-12-08] MEDS: NEURONTIN PO SCH ×3 (11:48→22:10)
[2016-12-08] MEDS: LACTULOSE PO SCH ×3 (11:48→22:10)
--- NOTE | 2016-12-08 13:06 | PROGRESS NOTE ---
DATE: 12/08/2016 SUBJECTIVE: Patient complains of abdominal pain and distention. He was unable to drink the colon prep enough to get cleaned out. OBJECTIVE: Vital Signs: Temperature 98.4 degrees, pulse 102, respirations 20, blood pressure 145/96. LABORATORY: Hematology: White count 7.44, hemoglobin 13.3, hematocrit 38.6, MCV 90.4. Chemistry: Sodium 126, potassium 4.8, chloride 88, CO2 25, BUN 7, creatinine 0.5. ASSESSMENT AND PLAN: 1. Ascites with cytology from ascitic fluid from his paracentesis showing positive for malignancy. 2. Unknown primary proceeding with endoscopy. We will first do esophagogastroduodenoscopy today. The patient was unable to tolerate colon preparation. Most likely will place a nasogastric tube during the esophagogastroduodenoscopy procedure and prep for colonoscopy for tomorrow. He also has plans for CT scan of the chest and thorax and bone scan per Dr. Wilkes. Further plans will be made according to findings. Patient voices understanding of this plan. Dictated by EVI Kam for Gregorio Kaur MD
--- NOTE | 2016-12-08 14:14 | PROGRESS NOTE ---
DATE: 12/08/2016 SUBJECTIVE: The patient states that he could not tolerate the GoLYTELY prep for his colonoscopy due to abdominal distention and nausea. He is scheduled for an EGD today. OBJECTIVE: Vital Signs: Temperature 98 degrees, blood pressure 145/96, heart rate 102, respirations 20, O2 saturation 96% on room air. General: This is an elderly male, lying in bed, in no acute distress. Head: Normocephalic, atraumatic. Heart: S1, S2. Normal. Tachycardic. Lungs: Clear to auscultation bilaterally. No crackles. No rales. Abdomen: Firm, distended. Diffuse tenderness. Extremities: No edema. No cyanosis. No calf tenderness. Neurologic: The patient is alert and oriented x3. LABS: White blood cell count 7.4, hemoglobin 13, hematocrit 38, platelets 322,000. Sodium 126, potassium 4.8, chloride 88, CO2 25, BUN 7, creatinine 0.5, glucose 115, albumin 3.6. ASSESSMENT AND PLAN: 1. Ascites. The patient's preliminary peritoneal fluid is positive for malignancy. The patient is scheduled for an EGD today. A colonoscopy will be done at the discretion of the implementation architect once the patient has been prepped. 2. Chronically elevated PSA. Aware. 3. Hyponatremia. The patient's sodium is a little bit lower today. We will continue to monitor this closely. 4. Spontaneous bacterial peritonitis. Continue on Levaquin.
[2016-12-08] MEDS ORDERED: MYLICON DROPS (DOSE) MISC ONE (14:54)
[2016-12-08] MEDS ORDERED: DIPRIVAN 1% ONE (15:19)
[2016-12-08] MEDS ORDERED: XYLOCAINE-MPF 2% ONE (15:25)
[2016-12-08] MEDS ORDERED: GOLYTELY NG ONE (15:25)
--- NOTE | 2016-12-08 15:35 | OPERATIVE NOTE ---
PROCEDURE DATE: 12/08/2016 PROCEDURES: 1. Esophagogastroduodenoscopy. 2. Feeding tube placement. HISTORY OF PRESENT ILLNESS: This is a 56-year-old gentleman who was diagnosed with malignant ascites recently of unknown primary. He is here for EGD to rule out upper GI pathology or upper GI cancer which has presented with malignant ascites. DESCRIPTION OF PROCEDURE: Informed consent obtained from the patient. The procedure, risks, benefits, and alternatives were explained in layman's terms. He understood. All his pertinent questions were answered. Patient was brought to the endoscopy unit and was premedicated as per anesthesia. After adequate sedation, while he was lying in the left lateral position, the gastroscope was introduced into the posterior pharynx and advanced under direct vision into the esophagus. Esophagus in its entire length appeared to be normal. No esophagitis, webs, rings, varices were seen. Scope was then passed through the esophagus and into the stomach. The stomach was examined both in the straight and retroflexed view which revealed hyperemic mucosa with some snakes and skin pattern suggestive of possible gastropathy, most likely alcoholic or peptic. The findings were mild but it was diffuse. No ulcer, AVM, masses, or tumor seen. Scope was then passed through the normal pylorus, into the duodenal bulb, and then 2nd part duodenum. Both appeared to be normal. The scope was then removed. I went ahead and placed a feeding tube through the right nostril into the stomach to prep him for his colonoscopy. Unfortunately, he was unable to tolerate the prep last night. Depending on the findings of colonoscopy, further plans to be made. I have explained the findings and plan to the patient and family member. They understood. All their pertinent questions were answered.
--- NOTE | 2016-12-08 15:43 | Diag Imaging Result Document ---
PROCEDURE NAME: CHEST/ABD TUBE PLACEMENT - 12/08/2016 PORTABLE CHEST X-RAY: COMPARISON: 12/03/2016. FINDINGS: There is a feeding tube with the tip in the stomach. IMPRESSION: Feeding tube with the tip in the stomach.
--- NOTE | 2016-12-08 15:59 | Diag Imaging Result Document ---
PROCEDURE NAME: THORAX/ABDOMEN/PELVIS - 12/08/2016 CHEST ABDOMEN AND PELVIS WITH IV AND ORAL CONTRAST: CHEST: There is a trace effusion on the left and an even smaller effusion on the right. There is trace bibasilar atelectasis. There are a few very vague ground-glass nodular density along the minor fissure on the right. There are also a few tiny pleural-based nodular foci at the posterior aspect of the right lung base. They all measure 4 mm or less. They certainly may represent tiny noncalcified granulomata. Continued surveillance is recommended given the reported history of neoplasm. The lungs are clear otherwise. There are bulky calcified mediastinal and right hilar lymph nodes indicating prior granulomatous disease. There is no evidence of significant lymphadenopathy, otherwise. There is nothing that would indicate metastatic disease to the bony structures of the thorax. IMPRESSION: 1. Trace bilateral effusions and bibasilar atelectasis. 2. A few nonspecific tiny noncalcified nodules in the right lung that statistically most likely represent noncalcified granulomata. However, given the reported history of malignancy, continued surveillance is recommended. 3. Other incidental/nonacute findings detailed above. ABDOMEN/PELVIS: FINDINGS: There is large volume ascites throughout the abdomen and pelvis. There are several hepatic hypodensities that have the appearance of tiny cysts, but are too small to accurately characterize. The gallbladder is contracted. The spleen is not enlarged. At the lower pole of the right kidney there is a heterogeneous mass measuring 4.1 x 2.7 cm. It appears to contain cystic and solid components and a few calcifications. Neoplasm, specifically renal cell carcinoma cannot be excluded. This was not imaged on the recent abdominal ultrasound. Continued surveillance is recommended. The antrum of the stomach appears somewhat thickened. Focal gastritis or neoplasm cannot be excluded. The colon is distended and there are distended loops of small bowel with air-fluid levels. These are nonspecific. Small-bowel obstruction cannot be excluded. There is a short segment of small bowel near the midportion of the abdomen on image 86 of series 7 with a vaguely thickened wall. It is possible that this is a transition point. The mesentery appears somewhat nodular and edematous. Peritoneal carcinomatosis cannot be excluded, especially given the ascites. There is a Connors catheter in the urinary bladder. The rectum is distended with gas. There appears to be lymphadenopathy in the epigastric region. There is focal narrowing of the distal sigmoid colon. This may be due to simple nondistention. Neoplasm cannot be excluded. Please see image 26 of series 9. The remainder of the solid viscera of the abdomen and pelvis is essentially unremarkable. There is nothing that would indicate bony metastatic disease to the abdomen or pelvis. IMPRESSION: 1. Large volume ascites. 2. Multiple hypodensities throughout the liver parenchyma. However, they have the appearance of tiny cysts, but are too small to characterize. 3. Heterogeneous mass at the lower pole of the right kidney. Neoplasm cannot be excluded. 4. Focal thickening at the antrum of the stomach. Gastric neoplasm should be excluded versus focal gastritis. 5. Very mild focal narrowing and wall thickening at the distal sigmoid colon just superior to the rectum. This may be due to nondistention. Neoplasm is not excluded. 6. Multiple distended loops of colon and small bowel that are nonspecific. Obstruction cannot completely be excluded. Please see above discussion. [facility]
[2016-12-08] MEDS: NICODERM PATCH TD SCH (16:12)
[2016-12-08] MEDS: ZOFRAN IV PRN (18:35)
[2016-12-08] MEDS: LEVAQUIN 500 MG/D5W 100 ML IV SCH (22:12)
[2016-12-09 06:23] LABS: MANUAL DIFF NEEDED? NO
[2016-12-09 06:29] LABS: BASO% 0.3 % (0.0-0.8); EOS# 0.02 X1000 (0.0-0.7); EOS% 0.3 % (0.0-10.0); HEMATOCRIT 38.6 % (42.0-52.0); HEMOGLOBIN 13.5 g/dL (14.0-18.0); IMM GRAN# 0.03 X1000 (0.0-0.04); IMM GRAN% 0.4 % (0.0-0.5); LYMPH# 0.81 X1000 (1.2-3.4); LYMPH% 10.7 % (20.5-51.1); MCH 30.6 PG (27-31); MCV 87.5 FL (81-99); MONO# 1.23 X1000 (0.11-0.59); MONO% 16.3 % (1.7-9.3); MPV 9.5 FL (7.4-10.4); PLT 339 X1000 (130-400); RBC 4.41 XMIL (4.7-6.1)
[2016-12-09] MEDS ORDERED: FLEET ENEMA PR ONE (06:34)
[2016-12-09 06:41] LABS: AGAP 22; ALBUMIN 3.7 g/dL (3.5-5.0); BUN 12 mg/dL (8-22); CHLORIDE 84 mmol/L (98-107); COSMO 257; POTASSIUM 3.4 mmol/L (3.5-5.1); SODIUM 128 mmol/L (136-145); TCO2 22 mmol/L (25-35)
[2016-12-09] MEDS: PROTONIX PO SCH (07:04)
--- NOTE | 2016-12-09 08:54 | Diag Imaging Result Document ---
PROCEDURE NAME: HEAD W/WO CONTRAST - 12/08/2016 CT HEAD WITH AND WITHOUT IV CONTRAST COMPARISON: None available. FINDINGS: HEAD: There is no discrete intracranial mass, mass effect, or intracranial hemorrhage. There is no evidence of acute infarct given the limited sensitivity of CT versus MRI. There is no evidence of abnormal intracranial enhancement. Surrounding soft tissues and bony structures are essentially unremarkable. IMPRESSION: No evidence of acute intracranial pathology by CT. -6
[2016-12-09] MEDS ORDERED: MYLICON DROPS (DOSE) MISC ONE (08:57)
[2016-12-09] MEDS ORDERED: VERSED ONE (09:36)
[2016-12-09] MEDS ORDERED: DIPRIVAN 1% ONE (09:36)
[2016-12-09] MEDS ORDERED: NS 500 ML IV SCH (10:15)
[2016-12-09] MEDS: LACTULOSE PO SCH (10:16)
[2016-12-09] MEDS ORDERED: NS 500 ML ONE (10:18)
[2016-12-09] MEDS: POTASSIUM CHLORIDE 20 MEQ/SWI 100 ML IV SCH ×2 (10:25→15:12)
[2016-12-09] MEDS: NEURONTIN PO SCH ×3 (10:26→21:19)
[2016-12-09] MEDS: NICODERM PATCH TD SCH (10:26)
[2016-12-09] MEDS ORDERED: LR 1,000 ML ONE (11:23)
[2016-12-09] MEDS ORDERED: XYLOCAINE-MPF 2% ONE (11:23)
[2016-12-09] MEDS ORDERED: ANESTHESIA PB SET 88 IN 5742 ONE (11:23)
[2016-12-09] MEDS ORDERED: EXTENSION SET 32 IN 4522 ONE (11:23)
--- NOTE | 2016-12-09 11:28 | OPERATIVE NOTE ---
PROCEDURE DATE : 12/09/2016 PROCEDURE: Colonoscopy and polypectomy. PREOPERATIVE DIAGNOSES: 1. Malignant ascites with unknown primary. 2. Normal esophagogastroduodenoscopy. POSTOPERATIVE DIAGNOSES: 1. Colon polyp, polypectomy performed. 2. Otherwise normal colon except fair prep. HISTORY: This is a 56-year-old gentleman admitted to the hospital with malignant ascites with unknown primary. Upper endoscopy done yesterday did not reveal any pathology. Colonoscopy scheduled today to rule out lower GI pathology such as colon cancer as possible primary. DESCRIPTION OF PROCEDURE: Informed consent was obtained from the patient. The procedure, risks, benefits, and alternatives were explained in layman's terms. He understood. All his pertinent questions were answered. The patient was brought to the endoscopy unit and was premedicated as per Anesthesia. After adequate sedation, while he was lying in the left lateral position, digital rectal examination was performed which was normal. The scope was then gently introduced into the rectum and advanced under direct vision through the parts of colon up to about 35 cm from the anal verge into the sigmoid colon. Further advancement was not possible because of severe tortuosity and hardening of the colon in that area. The scope was then withdrawn. I switched to a gastroscope, and I was able to advance the gastroscope through the sigmoid colon all the way up to the cecum. The cecum was identified by the ileocecal valve and appendiceal orifice. The scope was withdrawn paying careful attention to details. Preparation was fair. There was a good bit of stools which were mostly liquid present in the sigmoid colon and in the cecum. Most of them were cleaned out, and the colon was visualized to a greater extent. All I saw was a polyp in the sigmoid colon which was about 5 to 8 mm in size, sessile, smooth surfaced. Polypectomy was performed by snare and cautery without any complication. Otherwise, I did not see any polyps or tumors or cancers or masses in his colon. The retroflex view of the rectum revealed no pathology, either. The scope was then removed. The patient tolerated the procedure well. No complications were noted. The patient was then transferred to the recovery area in a stable condition. IMPRESSION: Colon polyp. Polypectomy performed. Otherwise, normal colon barring fair prep. RECOMMENDATION: Workup will continue to identify the primary for his malignant ascites and further plans made according to the findings and per team. I have explained the findings and plan to the patient and his family member. They understood. All their pertinent questions were answered.
[2016-12-09] MEDS ORDERED: SAMSCA PO ONE (12:40)
--- NOTE | 2016-12-09 15:16 | PROGRESS NOTE ---
DATE: 12/09/2016 SUBJECTIVE: The patient is resting comfortably in bed. He just returned from his colonoscopy. He states that he feels a little bit better. His abdomen is still distended. OBJECTIVE: Vital Signs: Temperature 97.6 degrees, blood pressure 146/102, heart rate 115, respirations 18, O2 saturations 99% on room air. General: This is an elderly male, lying in bed in no acute distress. Head: Normocephalic, atraumatic. Heart: S1, S2 normal, tachycardic. Lungs: Clear to auscultation bilaterally. No crackles. No rales. Abdomen: Firm, distended. Extremities: No edema. No cyanosis. No calf tenderness. Neurologic: The patient is alert and oriented x3. LABS: White blood cell count 7.5, hemoglobin 13, hematocrit 38, platelets 339. Sodium 128, potassium 3.4, chloride 84, CO2 22, BUN 12, creatinine 0.5. ASSESSMENT AND PLAN: 1. Malignant ascites. The patient has undergone an esophagogastroduodenoscopy and colonoscopy. Also, the patient has undergone screening computed tomographies of the chest, abdomen and pelvis. Gastroenterology and oncology are following. 2. Hyponatremia. Will give the patient a dose of Samsca. 3. Hypertension. We will start the patient on metoprolol 25 mg p.o. twice a day. 4. Hypokalemia. Will replace the patient's potassium. 5. Gastrointestinal prophylaxis. Continue on Protonix. 6. Deep vein thrombosis prophylaxis. Continue with sequential compression devices.
--- NOTE | 2016-12-09 15:52 | Diag Imaging Result Document ---
PROCEDURE NAME: BONE SCAN, TOTAL BODY - 12/08/2016 NUCLEAR MEDICINE WHOLE BODY BONE SCAN: COMPARISON: None available. FINDINGS: 25.8 mCi of technetium-99 MDP was administered intravenously, and images of the whole body were obtained in the usual fashion post administration. There is mild increased activity associated with both knees that is likely degenerative. No other abnormal focal increased uptake or focal photopenia is identified to indicate a destructive or traumatic bony lesion. There is normal excretion of radiotracer by the system. Surrounding soft tissue uptake is unremarkable. IMPRESSION: Mild increased uptake associated with both knees that appears to represent degenerative uptake. Essentially unremarkable, otherwise.
[2016-12-09] MEDS: NORCO-5 PO PRN (21:19)
[2016-12-09] MEDS: MILK OF MAGNESIA PO SCH (21:20)
[2016-12-09] MEDS: LEVAQUIN 500 MG/D5W 100 ML IV SCH (21:20)
[2016-12-09] MEDS: LOPRESSOR PO SCH (21:20)
[2016-12-10] MEDS: NORCO-5 PO PRN ×4 (03:35→21:29)
--- NOTE | 2016-12-10 05:05 | CONSULTATION ---
DATE OF CONSULTATION: 12/09/2016 ATTENDING AND REFERRING PHYSICIAN: Hospitalist. HISTORY OF PRESENT ILLNESS: This 56-year-old male was admitted with abdominal pain, nausea and vomiting. He has a history of cirrhosis and has significant ascites. He had undergone paracentesis and then several days after that, he developed abdominal distention with pain. The patient is followed in the [facility] for obstructive voiding and an elevated PSA. He was last seen on 11/25/2016. His PSA was 4.09 several years ago, and a prostate ultrasound and biopsies were benign. His PSA checked by his family physician (Dr. Weeks) was 7.1 in October 2016. His 4Kscore revealed intermediate risk for prostate cancer. The patient was going to undergo a prostate biopsy after his current GI problems had improved. The patient states he has an indwelling Connors catheter but was having no voiding problems. His rectal exam on 25 of November revealed a smooth and symmetric prostate. The patient had a thoracic and abdominal CT scan that revealed a small right lower pole renal mass. The patient denies any hematuria. PAST MEDICAL HISTORY: Hypertension, history of alcohol abuse, abdominal ascites, cirrhosis, gastroesophageal reflux disease. CURRENT MEDICATIONS: Are documented on the chart. PAST SURGICAL HISTORY: Vasectomy, prostate biopsy, esophagogastroduodenoscopy, colonoscopy. SOCIAL HISTORY: Alcohol abuse but no drinking for over 1 month. Cigarettes: A pack a day for over 25 years. REVIEW OF SYSTEMS: No known drug allergies. He states that before this abdominal distention got worse, he was feeling well. He denies any problems with diabetes. He states he does have peripheral neuropathy. PHYSICAL EXAMINATION: General: A normally developed, age apparent, white male with obvious ascites oriented x3 and cooperative. HEENT: Normal for age. Lungs: Clear. Cardiovascular: Regular rate and rhythm. Abdomen: Distended with obvious ascites. No obvious masses palpable. : Normal male with Connors catheter in place. Both testes down. Scrotal exam is normal. Rectal: Exam on 25 of November revealed a smooth and symmetric prostate. Extremities: Plus 1 edema. Neuro: No focal deficits. LABORATORY EVALUATION: He has a white count of 7.56, hemoglobin 13.5, hematocrit 38.6, platelets are 339,000. Serum chemistries have a sodium of 128, a potassium at 3.4, bicarb of 22, BUN is 12, creatinine 0.5. CT scan is as noted in the History of Present Illness. IMPRESSION: 1. Elevated prostatic specific antigen with intermediate risk 4Kscore. 2. A 2.7 x 4 cm exophytic heterogeneous mass at the lower pole of the right kidney. Mildly enlarged prostate with some obstructive symptoms. RECOMMEND: He could undergo prostate biopsy while hospitalized but it would be very unusual for prostate cancer to cause abdominal ascites, especially with a negative bone scan. The right lower pole renal mass will probably need to be excised but the abdominal ascites would have to be under control. We will follow. Thank you for this consultation.
[2016-12-10 06:16] LABS: MANUAL DIFF NEEDED? NO
[2016-12-10 06:20] LABS: BASO% 0.1 % (0.0-0.8); EOS# 0.14 X1000 (0.0-0.7); EOS% 1.9 % (0.0-10.0); HEMATOCRIT 35.7 % (42.0-52.0); HEMOGLOBIN 12.5 g/dL (14.0-18.0); IMM GRAN# 0.03 X1000 (0.0-0.04); IMM GRAN% 0.4 % (0.0-0.5); LYMPH# 0.94 X1000 (1.2-3.4); LYMPH% 12.6 % (20.5-51.1); MCH 30.9 PG (27-31); MCV 88.1 FL (81-99); MONO# 1.29 X1000 (0.11-0.59); MONO% 17.2 % (1.7-9.3); MPV 9.5 FL (7.4-10.4); NEUT% 67.8 % (42.2-75.2); PLT 289 X1000 (130-400); RBC 4.05 XMIL (4.7-6.1)
[2016-12-10 06:34] LABS: AGAP 15; ALBUMIN 3.2 g/dL (3.5-5.0); BUN 9 mg/dL (8-22); CALCIUM 8.6 mg/dL (8.8-10.2); CHLORIDE 89 mmol/L (98-107); COSMO 259; POTASSIUM 3.3 mmol/L (3.5-5.1); SODIUM 130 mmol/L (136-145); TCO2 26 mmol/L (25-35)
[2016-12-10] MEDS: PROTONIX PO SCH (06:55)
[2016-12-10] MEDS: NEURONTIN PO SCH ×3 (08:52→16:00)
[2016-12-10] MEDS: LOPRESSOR PO SCH ×2 (08:53→21:29)
[2016-12-10] MEDS: NICODERM PATCH TD SCH (08:53)
[2016-12-10] MEDS ORDERED: LASIX PO ONE (12:44)
[2016-12-10] MEDS ORDERED: KLOR-CON PO ONE (12:47)
--- NOTE | 2016-12-10 13:45 | PROGRESS NOTE ---
DATE: 12/10/2016 SUBJECTIVE: Patient states he is feeling a little better. He has been able to eat better today. OBJECTIVE: Vital Signs: Temperature 97.9 degrees, pulse 98, respirations 16, blood pressure 148/88. General Appearance: Patient is in no acute distress. Respiratory: Lung sounds essentially clear. Cardiovascular: Regular rate and rhythm. Abdomen: With tense ascites. Nontender with palpation. Extremities: Bilateral lower extremity edema noted. DIAGNOSTIC RESULTS: Laboratory: Hematology white count 7.49, hemoglobin 12.5, hematocrit 35.7, platelets 289,000. Chemistry: Sodium 138, potassium 3.3, chloride 89, CO2 26, BUN 9, creatinine 0.4. ASSESSMENT AND PLAN: Malignant ascites, questionable primary. He has had multiple workup and EGD, colonoscopy did not show any evidence of tumors. He has been seen by Dr. Rosales for a right kidney mass. He has had bone scan waiting on further evaluation per Dr. Wilkes to determine course of treatment and to differentiate primary origin of cancer. Continue supportive care. Continue current medications. GI will continue to follow and be available as needed. Dictated by EVI Kam for Gregorio Kaur MD
[2016-12-10] MEDS: LOVENOX SUBQ SCH (14:16)
--- NOTE | 2016-12-10 20:47 | PROGRESS NOTE ---
DATE: 12/10/2016 SUBJECTIVE: The patient states that he feels a little bit better today. He was able to eat his lunch today. OBJECTIVE: Vital Signs: Temperature 97.8 degrees, blood pressure 148/78, heart rate 98, respirations 18, O2 saturation is 100% on room air. General: This is a elderly male, lying comfortably in bed, in no acute distress. Head: Normocephalic, atraumatic. Heart: S1, S2 normal. Regular rate and rhythm. Lungs: Clear to auscultation bilaterally. No wheezes, no rales, no rhonchi. Abdomen: Positive bowel sounds, soft, nontender, nondistended. Extremities: Trace pedal edema. Neurologic: The patient is alert and oriented x3. LABS: White blood cell count 7.4, hemoglobin 12, hematocrit 35, platelets 289, 000. Sodium 130, potassium 3.3, chloride 89, BUN 9, creatinine 0.4. ASSESSMENT AND PLAN: 1. Malignant ascites. The patient has had an extensive workup. The pathology report is currently pending. Further management as per the oncologist and chemist pharmaceutical. 2. Hyponatremia. Slightly improved today. 3. Hypokalemia. We will give the patient a dose of potassium chloride. 4. GI prophylaxis. Continue on Protonix. 5. Deep vein thrombosis prophylaxis. Continue on Lovenox. [facility]
[2016-12-10] MEDS: MILK OF MAGNESIA PO SCH (21:28)
[2016-12-10] MEDS: LEVAQUIN 500 MG/D5W 100 ML IV SCH (21:28)
[2016-12-11] MEDS: NORCO-5 PO PRN (04:10)
[2016-12-11 06:04] LABS: HEMATOCRIT 37.8 % (42.0-52.0); HEMOGLOBIN 12.8 g/dL (14.0-18.0); MCH 30.7 PG (27-31); MCHC 33.9 g/dL (33-37); MCV 90.6 FL (81-99); MPV 9.3 FL (7.4-10.4); RBC 4.17 XMIL (4.7-6.1)
[2016-12-11 06:28] LABS: AGAP 13; ALBUMIN 3.2 g/dL (3.5-5.0); ALKALINE PHOSPHATASE 48 U/L (32-122); BUN 14 mg/dL (8-22); CALCIUM 9.4 mg/dL (8.8-10.2); CHLORIDE 90 mmol/L (98-107); COSMO 265; GOT 11 U/L (10-34); GPT 9 U/L (10-44); POTASSIUM 4.2 mmol/L (3.5-5.1); SODIUM 132 mmol/L (136-145); TCO2 29 mmol/L (25-35); TOTAL BILIRUBIN 0.41 mg/dL (0.20-1.00); TOTAL PROTEIN 5.8 g/dL (6.3-8.3)
[2016-12-11] MEDS: NEURONTIN PO SCH ×3 (08:33→16:33)
[2016-12-11] MEDS: LOPRESSOR PO SCH ×2 (08:33→21:08)
[2016-12-11] MEDS: PROTONIX PO SCH (08:34)
[2016-12-11] MEDS: NICODERM PATCH TD SCH (08:34)
[2016-12-11] MEDS: LASIX PO SCH (10:47)
[2016-12-11] MEDS: NORCO-7.5 PO PRN ×3 (11:58→21:22)
[2016-12-11] MEDS: LOVENOX SUBQ SCH (13:48)
--- NOTE | 2016-12-11 14:09 | PROGRESS NOTE ---
DATE: 12/11/2016 SUBJECTIVE: The patient complains of abdominal distention and pain. OBJECTIVE: Vital Signs: Temperature 98 degrees, blood pressure 146/97, heart rate 99, respirations 12, O2 saturations 99% on room air. General: Is the this is an elderly male lying in bed in no acute distress. Head: Normocephalic, atraumatic. Heart: S1, S2. Normal. Regular rate and rhythm. Lungs: Clear to auscultation bilaterally. No wheezes, no rales. No rhonchi. Abdomen: Distended, firm, positive for ascites. Extremities: No edema. No cyanosis. No calf tenderness. Neurologic: The patient is alert and oriented x3. LABS: White blood cell count 7.9, hemoglobin 12, hematocrit 37, platelets 272,000. Sodium 132, potassium 4.2, chloride 90, CO2 29, BUN 14, creatinine 0.6, glucose 97. ASSESSMENT AND PLAN: 1. Malignant ascites. The final pathology is pending at this time. Will await further recommendations from the oncologist. 2. Hyponatremia. Improved. 3. Hypertension. Will start the patient on Coreg. 4. Suspected spontaneous bacterial peritonitis. Continue on Levaquin. 5. Deep venous thrombosis prophylaxis. Continue on Lovenox.
--- NOTE | 2016-12-11 19:30 | CONSULTATION ---
DATE OF CONSULTATION: 12/11/2016 ADMITTING PHYSICIAN: Dr. Travis Vieyra. REQUESTING PHYSICIAN: Dr. Vieyra. We appreciate this consult. CHIEF COMPLAINT: Ascitic fluid positive for malignancy. HISTORY OF PRESENT ILLNESS: Mr. Fredy hSeehan is a pleasant 56-year-old male with a history of alcohol abuse. He does have a history of cirrhosis and now presents with large volume ascites. Patient additionally carries a history of hypertension and BPH and gastroesophageal reflux disease. He underwent ultrasound-guided paracentesis on November 29, 2016, with 7.5 L of ascitic fluid obtained. The patient was found to have ascitic fluid that is positive for the malignancy for which we are consulted. The patient does report continued abdominal pain, mostly in the left upper quadrant as well as decreased appetite and nausea and vomiting. PAST MEDICAL HISTORY: 1. Hypertension. 2. Cirrhosis. 3. BPH with elevated PSA followed by Dr. Rosales. 4. Thyroid cyst. 5. Gastroesophageal reflux disease. 6. ETOH abuse. PAST SURGICAL HISTORY: Vasectomy and prostate biopsy. SOCIAL HISTORY: The patient drinks 8-9 beers daily for 10-15 years. Smokes one pack of cigarettes daily for 25 years. He denies any illicit drug use. FAMILY HISTORY: Significant for coronary artery disease and prostate cancer in his father. MEDICATIONS ON ADMISSION: 1. Lisinopril. 2. Labetalol. 3. Aspirin. 4. Flomax. 5. Neurontin. 6. Norvasc. ALLERGIES: Patient has no known drug allergies. REVIEW OF SYSTEMS: Fourteen point review of systems was obtained and negative except for as mentioned in HPI. PHYSICAL EXAMINATION: Mr. Sheehan is a pleasant 56-year-old male lying supine in bed. Appears somewhat comfortable secondary to large volume ascites. He is in no immediate distress. Vital Signs: Temp 98.4, blood pressure 145/96, heart rate 102, respirations 20, saturation 96% on room air. HEENT: Normocephalic, atraumatic. Mucous membranes are pink and moist. Sclerae are icteric. Extraocular movements intact. Neck: Supple. Lungs: Are clear to auscultation bilaterally. Chest expansion is equal bilaterally. CV: S1 and S2 are heard without murmur, rub or gallop. Abdomen: Soft with large volume ascites. He does have bowel sounds throughout. Abdomen is nontender. Extremities: Without clubbing, cyanosis or edema. Dermatologic: No rashes, bruises or lesions. Skin: profoundly jaundiced. Neurologic: Patient is awake, alert and oriented x3. He has no focal deficit. LABORATORY DATA: Hemoglobin 13.3, hematocrit 36, white blood cell count is 7.44. Platelets 322,000. Sodium 126, potassium 4.8, chloride 88, CO2 25, BUN 7, creatinine 0.5 and glucose is 115. CEA is 1.3. Albumin is 3.6. ProBNP is 519. PSA is 5.01. Hepatitis profile is nonreactive. ASSESSMENT AND PLAN: 1. Ascitic fluid which is positive for malignancy. We are awaiting EGD and colonoscopy at this time. We will check CT head as well as chest, abdomen and pelvis. We will consider treatment option and plan to follow pending results of all diagnostic. 2. Hypertension which is well controlled at this time. 3. Cirrhosis. The patient with a history of EtOH abuse. Dr. Kaur is currently following. 4. BPH with a PSA of 5.01. Did undergo biopsy of the prostate 1-1/2 years ago which was negative. He does have a history of elevated PSAs. We will continue to follow PSA. 5. Thrombocytosis which is likely reactive with a platelet count 322,000 currently. We will continue to follow the patient's platelet count. 6. Tobacco abuse. Cessation has been encouraged. We will continue to follow. 7. We will follow along with you and make further recommendations pending outcomes. The above reflects the history, exam, assessment and plan of Dr. Wilkes. Dictated by EVI Cuevas for Eduardo Wilkes MD
[2016-12-11] MEDS: MILK OF MAGNESIA PO SCH (21:08)
[2016-12-11] MEDS: MIRALAX PO SCH (21:08)
[2016-12-11] MEDS: LEVAQUIN 500 MG/D5W 100 ML IV SCH (21:10)
[2016-12-12] MEDS: NORCO-7.5 PO PRN ×3 (03:00→12:06)
[2016-12-12 05:46] LABS: MANUAL DIFF NEEDED? NO
[2016-12-12 05:52] LABS: BASO% 0.4 % (0.0-0.8); EOS# 0.19 X1000 (0.0-0.7); EOS% 2.3 % (0.0-10.0); HEMATOCRIT 38.6 % (42.0-52.0); HEMOGLOBIN 13.3 g/dL (14.0-18.0); IMM GRAN# 0.09 X1000 (0.0-0.04); IMM GRAN% 1.1 % (0.0-0.5); LYMPH# 1.07 X1000 (1.2-3.4); LYMPH% 12.8 % (20.5-51.1); MCH 30.6 PG (27-31); MCHC 34.5 g/dL (33-37); MCV 88.9 FL (81-99); MONO# 1.23 X1000 (0.11-0.59); MONO% 14.7 % (1.7-9.3); MPV 9.6 FL (7.4-10.4); NEUT% 68.7 % (42.2-75.2); PLT 310 X1000 (130-400); RBC 4.34 XMIL (4.7-6.1)
[2016-12-12] MEDS: PROTONIX PO SCH (06:33)
[2016-12-12 06:59] LABS: AGAP 11; ALBUMIN 3.2 g/dL (3.5-5.0); ALKALINE PHOSPHATASE 51 U/L (32-122); BUN 14 mg/dL (8-22); CALCIUM 8.7 mg/dL (8.8-10.2); CHLORIDE 89 mmol/L (98-107); COSMO 264; GOT 10 U/L (10-34); GPT 8 U/L (10-44); POTASSIUM 4.7 mmol/L (3.5-5.1); SODIUM 131 mmol/L (136-145); TCO2 31 mmol/L (25-35); TOTAL BILIRUBIN 0.45 mg/dL (0.20-1.00); TOTAL PROTEIN 5.9 g/dL (6.3-8.3)
[2016-12-12] MEDS: MIRALAX PO SCH ×3 (07:35→22:09)
[2016-12-12] MEDS: NICODERM PATCH TD SCH ×2 (07:35→08:48)
[2016-12-12] MEDS: NEURONTIN PO SCH ×4 (07:36→19:38)
[2016-12-12] MEDS: LOPRESSOR PO SCH ×3 (07:36→21:51)
[2016-12-12] MEDS: LASIX PO SCH ×2 (07:36→08:47)
[2016-12-12] MEDS ORDERED: DULCOLAX PR ONE (12:09)
[2016-12-12] MEDS: LOVENOX SUBQ SCH (14:03)
--- NOTE | 2016-12-12 14:27 | Diag Imaging Result Document ---
PROCEDURE NAME: ABDOMEN FLAT/UPRIGHT - 12/12/2016 ABDOMEN, 2 VIEWS: COMPARISON: 12/08/2016. FINDINGS: There is severe constipation stable from prior. Small bowel loops are slightly distended diffusely and display air-fluid levels. No definite free air. IMPRESSION: 1. Severe constipation. 2. Diffuse small-bowel ileus.
--- NOTE | 2016-12-12 15:42 | PROGRESS NOTE ---
DATE: 12/12/2016 SUBJECTIVE: The patient is resting comfortably in bed. No acute events noted overnight. He does complain of abdominal pain and he feels like his stomach is more distended today. He also has edema in his lower extremities. OBJECTIVE: Vital Signs: Temperature 97.3 degrees, blood pressure 126/88, heart rate 81, respirations 12, O2 saturation is 98% on room air. General: This is an elderly male, lying comfortably in bed, in no acute distress. Head: Normocephalic, atraumatic. Heart: S1, S2. Normal. Regular rate and rhythm. Lungs: Clear to auscultation bilaterally. No wheezes. No rales. No rhonchi. Abdomen: Positive bowel sounds. Soft. Distended. Extremities: There is 2+ edema. No cyanosis. No calf tenderness. Neurologic: The patient is alert and oriented x3. LABS: White blood cell count 8.3, hemoglobin 13, hematocrit 38, platelets 310, 000. Sodium 131, potassium 4.7, chloride 89, CO2 31, BUN 14, creatinine 0.5, glucose 107, calcium 8.7, AST 10, ALT 8, alkaline phosphatase 51. ASSESSMENT AND PLAN: 1. Malignant ascites. We are currently awaiting the final pathology report. Oncology is following. 2. Volume overload. We will increase the patient's Lasix dosage to 40 mg twice a day. 3. Hypertension. Continue on Coreg. 4. Suspected spontaneous bacterial peritonitis. The patient is currently on Levaquin. 5. Severe constipation with ileus. Continue on dulcolax and NGT decompression. 6. Gastrointestinal prophylaxis. Continue on IV Protonix. 7. Deep vein thrombosis prophylaxis. Continue on Lovenox. [facility]
--- NOTE | 2016-12-12 17:10 | Diag Imaging Result Document ---
PROCEDURE NAME: CHEST-PORTABLE - 12/12/2016 PORTABLE CHEST X-RAY: COMPARISON: 12/08/2016. FINDINGS: The feeding tube has been removed and a nasogastric tube has been placed. The nasogastric tube is in the stomach in good position. IMPRESSION: Nasogastric tube in the stomach.
[2016-12-12] MEDS ORDERED: ATIVAN IV PRN (17:57)
[2016-12-12] MEDS: MORPHINE IV PRN ×2 (18:29→21:50)
[2016-12-12] MEDS: LACTULOSE PO SCH ×2 (19:38→22:09)
[2016-12-12] MEDS ORDERED: LASIX PO SCH (21:00)
[2016-12-12] MEDS: LASIX IV SCH (21:50)
[2016-12-12] MEDS: MILK OF MAGNESIA PO SCH (21:51)
[2016-12-12] MEDS: LEVAQUIN 500 MG/D5W 100 ML IV SCH (21:51)
[2016-12-13] MEDS: MORPHINE IV PRN ×4 (04:28→22:00)
[2016-12-13] MEDS: SODIUM CHLORIDE 0.9% INJ SCH (06:08)
[2016-12-13] MEDS: PROTONIX IV SCH (06:08)
[2016-12-13 06:35] LABS: MANUAL DIFF NEEDED? NO
[2016-12-13 06:39] LABS: BASO% 0.2 % (0.0-0.8); EOS# 0.12 X1000 (0.0-0.7); EOS% 1.4 % (0.0-10.0); HEMATOCRIT 39.4 % (42.0-52.0); HEMOGLOBIN 13.6 g/dL (14.0-18.0); IMM GRAN# 0.07 X1000 (0.0-0.04); IMM GRAN% 0.8 % (0.0-0.5); LYMPH# 0.98 X1000 (1.2-3.4); LYMPH% 11.3 % (20.5-51.1); MCH 30.5 PG (27-31); MCHC 34.5 g/dL (33-37); MCV 88.3 FL (81-99); MONO# 1.24 X1000 (0.11-0.59); MONO% 14.3 % (1.7-9.3); MPV 9.5 FL (7.4-10.4); PLT 316 X1000 (130-400); RBC 4.46 XMIL (4.7-6.1)
[2016-12-13 07:31] LABS: AGAP 14; ALBUMIN 2.9 g/dL (3.5-5.0); ALKALINE PHOSPHATASE 71 U/L (32-122); BUN 13 mg/dL (8-22); CALCIUM 8.6 mg/dL (8.8-10.2); CHLORIDE 85 mmol/L (98-107); COSMO 258; GOT 13 U/L (10-34); GPT 8 U/L (10-44); POTASSIUM 4.1 mmol/L (3.5-5.1); SODIUM 128 mmol/L (136-145); TCO2 29 mmol/L (25-35); TOTAL PROTEIN 6.1 g/dL (6.3-8.3)
[2016-12-13] MEDS: DULCOLAX PR SCH (08:25)
[2016-12-13] MEDS: NICODERM PATCH TD SCH (08:25)
[2016-12-13] MEDS: LASIX IV SCH ×2 (08:25→20:50)
--- NOTE | 2016-12-13 10:09 | Diag Imaging Result Document ---
PROCEDURE NAME: RADHA ABDOMEN - 12/13/2016 SUPINE RADIOGRAPH OF THE ABDOMEN, 2 VIEWS: COMPARISON: 12/12/2016. FINDINGS: There appears to be a Connors catheter in place in stable position. There has been placement of an NG tube with the tip projecting below the diaphragm and assumed to be in the stomach. There are nonspecific bowel gas and stool patterns. Most of this gas is colonic. There is a small mildly distended small bowel loop at the mid abdomen. This is nonspecific but probably represents mild ileus. There is a fair amount of stool in the colon suggesting only mild constipation by plain radiograph. IMPRESSION: Nonspecific abdomen and, perhaps, mild constipation.
[2016-12-13] MEDS: LOVENOX SUBQ SCH (14:27)
[2016-12-13] MEDS: NEURONTIN PO SCH ×3 (17:24→20:37)
[2016-12-13] MEDS: LOPRESSOR PO SCH ×2 (17:53→20:38)
--- NOTE | 2016-12-13 18:50 | PROGRESS NOTE ---
DATE: 12/13/2016 SUBJECTIVE: The patient is resting comfortably in the bed. The patient reports feeling very hungry. No nausea or abdominal pain or vomiting noted. OBJECTIVE: Vital Signs: Temperature 99.3 degrees, heart 99.1, heart rate 114, respiratory rate 16, blood pressure 150/100, O2 saturation 96% on room air. General Examination: This is a chronically ill-appearing and frail 56-year-old male, lying in bed, in no acute distress. HEENT: Head is normocephalic, atraumatic. Anicteric sclerae and pale conjunctivae. Mucous membranes moist. Neck: Supple. No jugular venous distention noted. No carotid bruits. No lymphadenopathy. No thyromegaly. Cardiovascular Examination: S1 and S2 heard. No murmurs, gallops, or rubs. Regular rate and rhythm. Respiratory: Clear bilaterally to auscultation. No work of breathing or using accessory muscles. Abdomen: Distended. Ascites positive. Bowel sounds distant, but present. Extremities: 2+ pitting edema in both lower extremities. Neurological Examination: Patient is alert and oriented x3. LABORATORY DATA: White cell count 8.66, hemoglobin 13.6, hematocrit 39.4, platelets 316,000. Sodium 128, potassium 4.1, chloride 85, bicarbonate 29. BUN 13, creatinine 0.6. ASSESSMENT AND PLAN: 1. Malignant ascites. Dr. Wilkes from Hematology-Oncology is following this patient. They are planning to palliative chemotherapy here in the hospital. At this time, they are planning to do a paracenteses with prior infusions of IV albumin. We will follow their recommendations. 2. Volume overload. The patient now has been started on Lasix 40 mg p.o. b.i.d. We will continue with same management. 3. Hypertension. We will continue with Coreg and although the patient reports that he does not want to take any oral, we have recommend him to continue taking his medications. 4. Suspected spontaneous bacterial peritonitis. Patient currently is on Levaquin and will continue with the same management. 5. Severe constipation. We will continue with Dulcolax and also with NG tube decompression for ileus.
[2016-12-13] MEDS: NORCO-7.5 PO PRN (20:37)
[2016-12-13] MEDS: LACTULOSE PO SCH (20:41)
[2016-12-13] MEDS: MILK OF MAGNESIA PO SCH (20:41)
[2016-12-13] MEDS: MIRALAX PO SCH (20:42)
[2016-12-13] MEDS: LEVAQUIN 500 MG/D5W 100 ML IV SCH (22:38)
[2016-12-14] MEDS: MORPHINE IV PRN ×4 (02:05→12:47)
[2016-12-14 04:32] LABS: INR 1.1; PROTIME 11.6 Seconds (9.2-11.7)
[2016-12-14] MEDS: SODIUM CHLORIDE 0.9% INJ SCH (05:59)
[2016-12-14] MEDS: PROTONIX IV SCH (05:59)
[2016-12-14] MEDS: LACTULOSE PO SCH ×3 (08:25→23:18)
[2016-12-14] MEDS: MIRALAX PO SCH ×2 (08:27→23:18)
[2016-12-14] MEDS: LASIX IV SCH ×2 (08:27→23:17)
[2016-12-14] MEDS: LOPRESSOR PO SCH ×2 (08:27→23:19)
[2016-12-14] MEDS: NICODERM PATCH TD SCH (08:27)
[2016-12-14] MEDS: NEURONTIN PO SCH ×2 (08:27→17:21)
[2016-12-14] MEDS: DULCOLAX PR SCH (08:27)
[2016-12-14] MEDS: NORCO-7.5 PO PRN ×2 (08:35→12:47)
[2016-12-14] MEDS ORDERED: ALBUMIN 25% IV ONE ×2 (10:45→13:17)
[2016-12-14] MEDS: LOVENOX SUBQ SCH (12:46)
--- NOTE | 2016-12-14 12:57 | Diag Imaging Result Document ---
PROCEDURE NAME: US PARACENTESIS - 12/14/2016 ULTRASOUND-GUIDED PARACENTESIS: FINDINGS: The risks and benefits of the study including the possibility of bleeding, infection, or puncture of abdominal viscus was described to the patient and he agreed. Following sterile preparation of the skin anterolaterally on the right and administration of 1% lidocaine to the skin and deeper soft tissues, the paracentesis catheter was placed in a large pocket of fluid and free flow of ascites was obtained. A total of 5.3 L of mostly turbid-yellowish fluid was collected. 300 mL of this at the end of the collection was more blood tinged. This is in the last bottle. Otherwise, the patient tolerated the procedure well and there were no immediate complications. IMPRESSION: Successful ultrasound-guided paracentesis.
[2016-12-14] MEDS ORDERED: FLEET ENEMA PR ONE (15:34)
[2016-12-14] MEDS ORDERED: RELISTOR SUBQ ONE (15:45)
[2016-12-14] MEDS ORDERED: DILAUDID IV PRN (15:46)
--- NOTE | 2016-12-14 17:06 | PROGRESS NOTE ---
DATE: 12/14/2016 SUBJECTIVE: Patient reports he is still complaining of abdominal pain and feeling a little bit nauseated. Reports no bowel movement since last . OBJECTIVE: Vital Signs: Temperature 98.4 degrees, heart rate 100, respiratory rate 18, blood pressure 141/90, O2 saturation 96% on room air. General Examination: This is a chronically ill- appearing, frail 56-year-old male, lying in bed, in no acute distress. HEENT: Head is normocephalic, atraumatic. Anicteric sclerae and pale conjunctivae. Mucous membranes moist. Neck: Supple. No JVD noted. No carotid bruits. No lymphadenopathy. No thyromegaly. Cardiovascular: S1, S2 heard. No murmurs, gallops, or rubs. Regular rate and rhythm. Respiratory: Clear bilaterally to auscultation. No work of breathing or using accessory muscles. Abdomen: Distended but less in comparing with yesterday. Patient got back from procedure for a paracentesis. Bowel sounds distant but present. An NG tube present with greenish material coming out to a canister. Extremities: 2+ pitting edema in both lower extremities. Neurological: Patient alert oriented x3. LABORATORY DATA: None. ASSESSMENT AND PLAN: 1. Malignant ascites. The patient has been sent to the Radiology Department for a paracentesis. There were able to remove 5.3 L of ascitic fluid. Now patient is feeling more comfortable. The patient will get up with me after that procedure and before too. We will continue with Lasix p.o. b.i.d. 2. Volume overload. Patient has been as we mentioned before, has been started on Lasix 40 mg IV b.i.d. We will continue with same management. 3. Hypertension. Blood pressure is under control. All home medications have been restarted. 4. Suspected spontaneous bacterial peritonitis. Patient is on Levaquin. The patient is afebrile. White blood cell count is back to normal. We will continue with same treatment. 5. Severe constipation. 6. Will try enemas today.
[2016-12-14] MEDS: PERCOCET-10 PO SCH ×2 (17:21→23:20)
[2016-12-14] MEDS: LEVAQUIN 500 MG/D5W 100 ML IV SCH (23:17)
[2016-12-14] MEDS: MILK OF MAGNESIA PO SCH (23:18)
[2016-12-14] MEDS: REMERON SOLTAB PO SCH (23:19)
[2016-12-14] MEDS: PRINIVIL PO SCH (23:19)
[2016-12-15] MEDS: FLOMAX PO SCH ×2 (00:27→22:29)
[2016-12-15] MEDS: MIRALAX PO SCH ×3 (00:28→22:26)
[2016-12-15] MEDS: PERCOCET-10 PO SCH ×3 (04:39→16:50)
[2016-12-15] MEDS: PROTONIX IV SCH (07:47)
[2016-12-15] MEDS: SODIUM CHLORIDE 0.9% INJ SCH (07:47)
[2016-12-15] MEDS ORDERED: CHLORASEPTIC SORE THROAT LOZENGE MT PRN (10:05)
[2016-12-15] MEDS: LACTULOSE PO SCH ×2 (10:41→22:17)
[2016-12-15] MEDS: LOPRESSOR PO SCH ×2 (10:44→22:26)
[2016-12-15] MEDS: NORVASC PO SCH (10:44)
[2016-12-15] MEDS: LASIX IV SCH ×2 (10:44→22:26)
[2016-12-15] MEDS: NICODERM PATCH TD SCH (10:45)
[2016-12-15] MEDS: DULCOLAX PR SCH (10:45)
[2016-12-15] MEDS: PRINIVIL PO SCH ×2 (10:45→22:28)
[2016-12-15] MEDS: NEURONTIN PO SCH ×5 (10:45→22:28)
[2016-12-15] MEDS: LOVENOX SUBQ SCH (12:53)
--- NOTE | 2016-12-15 14:46 | PROGRESS NOTE ---
DATE: 12/15/2016 SUBJECTIVE: Patient states he is feeling better. He is sitting up in the bed. He has an NG-tube in place that is clamped. He denies any nausea or vomiting. He does report having some small bowel movements today. He is passing gas. OBJECTIVE: Vital Signs: Temperature 98.3 degrees, pulse 99, respirations 18, blood pressure 118/83. General: Patient is in no acute distress. Abdomen: Distention and ascites have improved after paracentesis yesterday. They pulled 5.3 L of fluid. He has an NG tube that is currently clamped. Lung: Essentially clear. Extremities: Bilateral lower extremity edema noted. Neurological: He is awake, alert, and oriented to person, place, and time. DIAGNOSTIC RESULTS: Laboratory: Hematology: White count 8.66, hemoglobin 13.6, hematocrit 39.4, MCV 88.3, and platelets 316,000. Coagulation: Pro time 11.6, INR 1.10, PTT 29.5. Chemistry: Sodium 128, potassium 4.1, chloride 85, CO2 of 29, BUN 13, creatinine 0.6, glucose 105, calcium 8.6. ASSESSMENT AND PLAN: 1. Ascites positive for malignancy, most likely secondary to pancreatic cancer with elevation of CA19-9. Dr. Wilkes is following and plans to start chemotherapy when able. 2. Ascites status post paracentesis with 5.3 L of ascitic fluid removed. His abdominal distention and ascites has improved since the procedure. 3. Ethanol abuse/cirrhosis. PLAN: Continue supportive care. His NG tube is clamped. Possibly remove it later today or tomorrow if he continues to do well. GI will continue to be available as needed. Plans to start chemotherapy when able, following with Dr. Wilkes. Dictated by EVI Kam for Gregorio Kaur MD
--- NOTE | 2016-12-15 15:34 | PROGRESS NOTE ---
DATE: 12/15/2016 SUBJECTIVE: Patient reports feeling much better with the pain better controlled. Reports having had 2 bowel movements yesterday and 1 today. She is passing gas also. OBJECTIVE: Vital Signs: Temperature 98.3 degrees, heart rate 99, respiratory rate 18, blood pressure 118/83. O2 saturation 96% on room air. General Examination: This is a chronically ill appearing and frail 56-year-old male, lying in bed in no acute distress. HEENT: Head is normocephalic, atraumatic. Anicteric sclerae and pale conjunctivae. Mucous membranes moist. Neck: Supple. No JVD noted. No carotid bruits. No lymphadenopathy. No thyromegaly. Cardiovascular: S1, S2 heard. No murmurs, gallops, or rubs. Regular rate and rhythm. Respiratory: Clear bilaterally to auscultation. No work of breathing or using accessory muscles. Abdomen: Abdomen is soft, a little bit distended with mild ascites. Bowel sounds distant, but present. NG-tube with greenish material coming out to a canister. Extremity: No clubbing, cyanosis, or edema. Peripheral pulses present in both legs. 2+ pitting edema in both lower extremities. Neurological: Patient alert and oriented x3. Moves 4 extremities. LABORATORY DATA: Unknown. ASSESSMENT AND PLAN: 1. Malignant ascites. That condition has improved after paracenteses that was done yesterday and they were able to remove 5.3 L of ascitic fluid. The patient is feeling more comfortable. We are going to continue with Lasix. 2. Volume overload. We will continue with Lasix 40 mg intravenous q.12 hours. 3. Hypertension. Blood pressure is under control. Continue with the same management. 4. Suspected spontaneous bacterial peritonitis. Patient is on Levaquin. We will continue with the same management. 5. Severe constipation. getting better. 6. Small bowel obstruction: Getting better. Had bowel movements yesterday and today. Will remove NG tube and start clear liquid diet. [facility]
[2016-12-15] MEDS: MILK OF MAGNESIA PO SCH (22:17)
[2016-12-15] MEDS: LEVAQUIN 500 MG/D5W 100 ML IV SCH (22:17)
[2016-12-15] MEDS: REMERON SOLTAB PO SCH (22:28)
[2016-12-16] MEDS: PERCOCET-10 PO SCH ×6 (03:17→22:11)
[2016-12-16] MEDS: PROTONIX IV SCH (06:39)
[2016-12-16 09:59] LABS: MANUAL DIFF NEEDED? NO
[2016-12-16 10:03] LABS: BASO% 0.3 % (0.0-0.8); EOS# 0.13 X1000 (0.0-0.7); EOS% 1.2 % (0.0-10.0); HEMATOCRIT 38.4 % (42.0-52.0); IMM GRAN# 0.11 X1000 (0.0-0.04); LYMPH% 9.8 % (20.5-51.1); MCH 30.1 PG (27-31); MCHC 33.9 g/dL (33-37); MCV 88.9 FL (81-99); MONO# 1.57 X1000 (0.11-0.59); MPV 9.4 FL (7.4-10.4); NEUT% 73.7 % (42.2-75.2); PLT 354 X1000 (130-400); RBC 4.32 XMIL (4.7-6.1)
[2016-12-16] MEDS: LASIX IV SCH (10:05)
[2016-12-16] MEDS: NORVASC PO SCH (10:05)
[2016-12-16] MEDS: PRINIVIL PO SCH (10:06)
[2016-12-16] MEDS: LOPRESSOR PO SCH ×2 (10:06→22:17)
[2016-12-16] MEDS: NICODERM PATCH TD SCH ×2 (10:07→10:11)
[2016-12-16] MEDS: NEURONTIN PO SCH ×3 (10:08→17:09)
[2016-12-16] MEDS: MIRALAX PO SCH ×2 (10:08→22:12)
[2016-12-16] MEDS: DULCOLAX PR SCH (10:09)
[2016-12-16] MEDS: LACTULOSE PO SCH ×2 (10:09→23:36)
[2016-12-16 11:21] LABS: AGAP 17; ALBUMIN 3.1 g/dL (3.5-5.0); ALKALINE PHOSPHATASE 52 U/L (32-122); BUN 25 mg/dL (8-22); CALCIUM 8.8 mg/dL (8.8-10.2); CHLORIDE 81 mmol/L (98-107); COSMO 264; GOT 14 U/L (10-34); GPT 7 U/L (10-44); POTASSIUM 3.5 mmol/L (3.5-5.1); SODIUM 129 mmol/L (136-145); TCO2 31 mmol/L (25-35); TOTAL BILIRUBIN 0.65 mg/dL (0.20-1.00); TOTAL PROTEIN 5.8 g/dL (6.3-8.3)
[2016-12-16] MEDS: LOVENOX SUBQ SCH (13:29)
--- NOTE | 2016-12-16 15:25 | PROGRESS NOTE ---
DATE: 12/16/2016 SUBJECTIVE: Patient is feeling fine. NG tube has been removed and patient is feeling fine. Regarding management of pain he is doing much better. He is moving bowels and passing gases well. OBJECTIVE: Vital Signs: Temperature 98.1 degrees, heart rate 104, respiratory rate 18, blood pressure 117/96, O2 saturation 96% on room air. General Examination: This is a chronically ill- looking and frail, 56-year-old male, looking older than his age, lying in bed, in no acute distress. HEENT: Head is normocephalic, atraumatic. Anicteric sclerae and pale conjunctivae. Mucous membranes moist. Neck: Supple. No JVD noted. No carotid bruits. No lymphadenopathy. No thyromegaly. Cardiovascular: S1, S2 heard. No murmurs, gallops, or rubs. Regular rate and rhythm. Respiratory: Clear bilaterally to auscultation. No work of breathing or using accessory muscles. Abdomen: Soft, nontender to palpation. Bowel sounds present. No organomegaly. Extremities: No clubbing, cyanosis, or edema. Peripheral pulses present in both legs. Neurological: Patient is alert and oriented x3. Able to move 4 extremities. Cranial nerves 2-12 grossly normal. LABORATORY DATA: None. ASSESSMENT AND PLAN: 1. Malignant ascites. Condition is stable after paracentesis 2 days ago. 2. Small-bowel obstruction. That condition is resolved. Patient is moving his bowels and NG tube has been removed with and he is trying a liquid diet, that is not going to be advanced because he is tolerating this diet very well. 3. Volume overload. We will continue with Lasix q.12 hours, also because of blood pressure we are going to hold it today. 4. Hypertension. Actually the blood pressure is low because we removed 5 L of ascitic fluid and also fluids from the nasal cannula, so blood pressure is in the range of 70s and 80s, so we are going to hold all blood pressure medications for 2 days, and we will see how this patient does and in the meantime we will provide normal saline at 75 mL/hour just for today. 5. Severe constipation. Resolved.
--- NOTE | 2016-12-16 16:15 | PALLIATIVE CARE CONSULTATION ---
DATE: 12/16/2016 REQUESTING PHYSICIAN: Dr. Valerio. REASON FOR CONSULTATION: Goals of care. HISTORY OF PRESENT ILLNESS: This is a 56-year-old, male, with a past medical history of hypertension, gastroesophageal reflux disease, alcohol abuse, thyroid cyst, BPH with an elevated PSA being monitored by Dr. Rosales, as well as cirrhosis that was being worked up by Dr. Kaur just prior to this admission. Mr. Sheehan was admitted on 12/03/2016 after presenting to the ED with complaints of abdominal pain, worsening nausea and vomiting, constipation and loss of appetite. Prior to admission on 11/29/2016 a paracentesis was performed and 7.5 L of fluid was drained. Since admission it has been found that Mr. Sheehan's ascites is positive for a malignancy most likely secondary to pancreatic cancer considering the elevation of the CA 19-9. Dr. Wilkes has been consulted and plans to start chemotherapy tomorrow, 12/17/2016. Currently Mr. Sheehan is lying in the hospital bed. He does complain of abdominal pain but states that his current pain medication is effective in treating that pain. He denies nausea and vomiting. He denies shortness of breath, anxiety and depression. His is at the bedside. The palliative care team has been consulted to assist with goals of care. REVIEW OF SYSTEMS: Twelve point review of systems has been conducted and otherwise negative except those mentioned in the HPI. PAST MEDICAL HISTORY: See HPI. PAST SURGICAL HISTORY: 1. Vasectomy. 2. Prostate biopsy. FAMILY HISTORY: Positive for coronary artery disease and prostate cancer. SOCIAL HISTORY: Prior to this admission he lived at home with his who is very attentive to his care. It is reported that he would drink 6-8 beers a day and has so for the last 10-15 years. He is also an every day tobacco user. Drug use has been denied. PHYSICAL EXAMINATION: General: This is a 56-year-old, male who does not appear to be in any acute distress. HEENT: Atraumatic, normocephalic. Neck: Supple. Cardiovascular: Increased rate. Regular rhythm. Pulmonary: Lung sounds are diminished. Respirations are nonlabored. Abdomen: Distended. Bowel sounds are active. Extremities: Pulses are palpable. Neuro: Mr. Sheehan is awake and alert. He is oriented to person, place and time. IMPRESSION: This is a 56-year-old, male with a past medical history as listed above in the HPI. The patient states that his understanding of the current plan is that he will receive his 1st dose of chemotherapy while in the hospital and then be discharged home to continue chemotherapy on an outpatient basis. As previously mentioned, he does not have any acute complaints. He states that his current pain medication regimen is very effective in treating his pain. He states that he is ambulatory and able to walk without any assistance. We did discuss advanced directive and power of corporate associate attorney. He does not have either document but has requested information regarding those documents which will be given. Currently Mr. Sheehan is a full code. It appears that his palliative performance scale is 70%. The palliative care team will continue to follow as needed. Thank you for this consultation. Dictated by EVI Alford for Bairon Reyna MD
[2016-12-16] MEDS: NS 1,000 ML IV SCH (18:08)
[2016-12-16] MEDS ORDERED: CALMOSEPTINE OINTMENT TOP PRN (18:46)
[2016-12-16] MEDS: FLOMAX PO SCH (22:11)
[2016-12-16] MEDS: REMERON SOLTAB PO SCH (22:11)
[2016-12-16] MEDS: MILK OF MAGNESIA PO SCH (22:12)
[2016-12-16] MEDS: LEVAQUIN 500 MG/D5W 100 ML IV SCH (22:12)
[2016-12-17] MEDS: PROTONIX IV SCH (06:32)
[2016-12-17] MEDS: SODIUM CHLORIDE 0.9% INJ SCH (06:32)
[2016-12-17] MEDS: PERCOCET-10 PO SCH ×3 (06:33→13:17)
[2016-12-17] MEDS: DULCOLAX PR SCH (09:35)
[2016-12-17] MEDS: LACTULOSE PO SCH ×3 (09:35→20:48)
[2016-12-17] MEDS: LOPRESSOR PO SCH ×2 (09:36→20:47)
[2016-12-17] MEDS: MIRALAX PO SCH ×2 (09:37→20:44)
[2016-12-17] MEDS: NICODERM PATCH TD SCH (09:55)
[2016-12-17] MEDS: NEURONTIN PO SCH ×3 (09:55→18:15)
--- NOTE | 2016-12-17 12:42 | PROGRESS NOTE ---
DATE: 12/17/2016 SUBJECTIVE: Patient states he is feeling better. The NG tube was removed. He is eating well and having bowel movements. OBJECTIVE: Vital Signs: Temperature 97.4 degrees, pulse 95, respirations 20, blood pressure 96/32. Generally: Awake, alert, no acute distress. HEENT: Normocephalic, atraumatic. Pupils equal, round, reactive to light. Cardiovascular: Regular rate and rhythm. Respiratory: Lung sounds essentially clear. Abdomen: Some ascites noted but improved after paracentesis nontender. LABORATORY RESULTS: Hematology: White count 11.24, hemoglobin 13.0, hematocrit 38.4. Chemistry: Sodium 129, potassium 3.5, chloride 81, CO2 31, BUN 25, creatinine 1.1. Glucose 114. ASSESSMENT AND PLAN: 1. Malignant ascites. He had paracentesis with approximately 5 L removed. 2. Small bowel obstruction has resolved. NG tube was removed. He is having a bowel movement. 3. Hypotension. His blood pressure medicines have been held. PLAN: Continue supportive care. Continue current medications. Continue to follow with Dr. Wilkes regarding initiation of chemotherapy. Patient reports possibility of starting that today and we will continue to follow. Dr. Ballesteros will be on-call over the weekend. We will follow back if the patient is still in house on Tuesday. Otherwise see back in the office after discharge. Dictated by EVI Kam for Gregorio Kaur MD
[2016-12-17] MEDS: LOVENOX SUBQ SCH (13:18)
[2016-12-17] MEDS ORDERED: BENADRYL IV PRN (14:19)
[2016-12-17] MEDS ORDERED: NARCAN IV PRN (14:19)
[2016-12-17] MEDS ORDERED: ZOFRAN IV PRN (14:19)
[2016-12-17] MEDS ORDERED: DECADRON IV ONE (15:00)
[2016-12-17] MEDS ORDERED: KYTRIL IV ONE (15:00)
[2016-12-17] MEDS: DILAUDID PCA VIAL IV PRN (15:03)
[2016-12-17] MEDS: LR 1,000 ML IV SCH (15:08)
[2016-12-17] MEDS ORDERED: NS IV ONE ×2 (15:30→16:30)
[2016-12-17] MEDS ORDERED: [UNRECOGNIZED DRUG - OTHER] IV ONE (15:30)
[2016-12-17] MEDS ORDERED: NS 100 ML IV ONE (16:00)
[2016-12-17] MEDS ORDERED: GEMZAR IV ONE (16:30)
--- NOTE | 2016-12-17 16:46 | PROGRESS NOTE ---
DATE: 12/17/2016 SUBJECTIVE: Patient reports feeling fine. The pain is well controlled. No nausea and vomiting. Having bowel movements. OBJECTIVE: Vital Signs: Temperature 97.4 degrees, heart rate 99, respiratory rate 18, blood pressure 198/63, O2 saturation 99% on room air. General: This is a chronically ill-looking and frail, 56-year-old male, looking older than his age, lying in bed in no acute distress. HEENT: Head is normocephalic, atraumatic. Anicteric sclerae and pale conjunctivae. Mucous membranes moist. Neck: Supple. No JVD noted. No carotid bruits. No lymphadenopathy. No thyromegaly. Cardiovascular: Normal S1 and S2 heard. No murmurs, gallops, or rubs. Regular rate and rhythm. Respiratory: Clear bilaterally to auscultation. No work of breathing or using accessory muscles. Abdomen: Soft, a little bit distended with ascites present, similar in comparison with yesterday. Bowel sounds present, but distant. No organomegaly. Extremities: No clubbing, cyanosis, or edema. Peripheral pulses present in both legs. Neurological: Patient alert and oriented x3. Moves all 4 extremities. LABORATORY DATA: None. ASSESSMENT AND PLAN: 1. Malignant ascites. Hematology/Oncology is following and they are going to start chemotherapy on this patient. We will follow his lead. 2. Small-bowel obstruction, resolved. 3. Volume overload. Patient is on Lasix 40 mg IV q.12 hours. We will continue with the same management. That is helping to control the ascites. 4. Hypertension. Blood pressure actually is borderline. Yesterday, it was 60-70 systolic blood pressure, so we have stopped all antihypertensive medications. He is on IV fluid at 75 mL/h. We are going to continue with those fluids today. We will see how this patient does tomorrow. 5. Severe constipation, resolved. cc: Hernesto Breen MD
[2016-12-17] MEDS: FLOMAX PO SCH (20:44)
[2016-12-17] MEDS: REMERON SOLTAB PO SCH (20:44)
[2016-12-17] MEDS: LEVAQUIN 500 MG/D5W 100 ML IV SCH (20:47)
[2016-12-17] MEDS: MILK OF MAGNESIA PO SCH (20:47)
[2016-12-17] MEDS: NS 1,000 ML IV SCH (21:01)
[2016-12-18] MEDS: PROTONIX IV SCH (06:30)
[2016-12-18] MEDS ORDERED: LASIX ONE (06:35)
[2016-12-18] MEDS: LACTULOSE PO SCH ×2 (10:00→23:15)
[2016-12-18] MEDS: LOPRESSOR PO SCH ×2 (10:00→23:17)
[2016-12-18] MEDS: DULCOLAX PR SCH (10:00)
[2016-12-18] MEDS: NICODERM PATCH TD SCH (10:00)
[2016-12-18] MEDS: LASIX IV SCH ×2 (10:00→21:15)
[2016-12-18] MEDS: MIRALAX PO SCH ×2 (10:00→23:18)
[2016-12-18] MEDS: NEURONTIN PO SCH ×3 (10:00→17:15)
[2016-12-18] MEDS: LOVENOX SUBQ SCH (13:15)
[2016-12-18] MEDS: LR 1,000 ML IV SCH (14:00)
--- NOTE | 2016-12-18 14:19 | PROGRESS NOTE ---
DATE: 12/18/2016 SUBJECTIVE: Patient reports feeling fine. The patient has been started on chemotherapy yesterday and feeling a little bit nauseated but no truly vomiting or abdominal pain. The pain reports he is well controlled overall. OBJECTIVE: Vitals: Per chart within normal limits. General: This is a chronically ill-looking and frail, 56-year-old male, lying in bed, in no acute distress. HEENT: Head is normocephalic, atraumatic. Anicteric sclerae and pale conjunctivae. Mucous membranes moist. Neck: Supple. No JVD noted. No carotid bruits. No lymphadenopathy. No thyromegaly. Cardiovascular Examination: S1, S2 heard. No murmurs, gallops, or rubs. Regular rate and rhythm. Respiratory: Clear bilaterally to auscultation. No work of breathing or using accessory muscles. Abdomen: Soft, nontender to palpation. Bowel sounds present. No organomegaly. A little bit distended because of ascites. Extremities: No clubbing, cyanosis. Mild edema in both lower extremities. Neurological: Patient alert oriented x3. LABORATORY DATA: None. ASSESSMENT AND PLAN: 1. Malignant ascites. Hematology Oncology has started him on chemotherapy yesterday. We will follow his leads. 2. Small small obstruction resolved. 3. Volume overload. The patient is on Lasix 40 mg IV q.12 hours. We will continue with the same management. 4. Hypertension. Blood pressure by now has been between 101 and 110. We are going to stop IV fluids. 5. Severe constipation resolved. cc: Hernesto Breen MD [facility]
[2016-12-18] MEDS: REMERON SOLTAB PO SCH (21:15)
[2016-12-18] MEDS: LEVAQUIN 500 MG/D5W 100 ML IV SCH (21:15)
[2016-12-18] MEDS: FLOMAX PO SCH (23:15)
[2016-12-18] MEDS: MILK OF MAGNESIA PO SCH (23:17)
[2016-12-19] MEDS: DILAUDID PCA VIAL IV PRN (02:37)
[2016-12-19] MEDS: PROTONIX IV SCH (06:52)
[2016-12-19] MEDS: SODIUM CHLORIDE 0.9% INJ SCH (06:52)
[2016-12-19] MEDS: ZOFRAN IV PRN (08:58)
[2016-12-19] MEDS: LASIX IV SCH (09:01)
[2016-12-19] MEDS: LACTULOSE PO SCH ×2 (09:03→20:40)
[2016-12-19] MEDS: LOPRESSOR PO SCH ×2 (09:04→20:39)
[2016-12-19] MEDS: MIRALAX PO SCH ×2 (09:04→20:39)
[2016-12-19] MEDS: NICODERM PATCH TD SCH (09:05)
[2016-12-19] MEDS: NEURONTIN PO SCH ×3 (09:05→17:52)
[2016-12-19] MEDS: DULCOLAX PR SCH (09:12)
[2016-12-19 10:14] LABS: AGAP 9; ALBUMIN 2.9 g/dL (3.5-5.0); ALKALINE PHOSPHATASE 61 U/L (32-122); BUN 12 mg/dL (8-22); CALCIUM 8.2 mg/dL (8.8-10.2); CHLORIDE 81 mmol/L (98-107); COSMO 247; GOT 65 U/L (10-34); GPT 35 U/L (10-44); POTASSIUM 4.2 mmol/L (3.5-5.1); SODIUM 122 mmol/L (136-145); TCO2 32 mmol/L (25-35); TOTAL BILIRUBIN 0.72 mg/dL (0.20-1.00); TOTAL PROTEIN 5.8 g/dL (6.3-8.3)
[2016-12-19 10:19] LABS: BASO% 0.1 % (0.0-0.8); EOS% 1.1 % (0.0-10.0); HEMATOCRIT 39.5 % (42.0-52.0); HEMOGLOBIN 13.6 g/dL (14.0-18.0); LYMPH% 6.5 % (20.5-51.1); MANUAL DIFF NEEDED? YES; MCH 30.4 PG (27-31); MCHC 34.4 g/dL (33-37); MCV 88.2 FL (81-99); MONO# 0.21 X1000 (0.11-0.59); MONO% 2.3 % (1.7-9.3); MPV 9.9 FL (7.4-10.4); PLT 327 X1000 (130-400); RBC 4.48 XMIL (4.7-6.1)
[2016-12-19 10:43] LABS: LYMPHS 12 % (21-51)
[2016-12-19] MEDS: REGLAN IV SCH ×3 (12:59→23:18)
[2016-12-19] MEDS ORDERED: SAMSCA PO ONE (13:18)
[2016-12-19] MEDS: LOVENOX SUBQ SCH (13:41)
[2016-12-19] MEDS: LR 1,000 ML IV SCH (14:54)
--- NOTE | 2016-12-19 15:04 | PROGRESS NOTE ---
DATE: 12/19/2016 SUBJECTIVE: Patient reporting some hiccups and feeling nauseated. Otherwise, he is feeling fine and wants to try a more consistent diet. OBJECTIVE: Vital Signs: Temperature 97.9 degrees, heart rate 111, respiratory rate 14, blood pressure 137/83, and O2 saturation 98% on 2L nasal cannula. General Examination: This is a chronically ill-looking and frail 56-year-old female lying in bed in no acute distress. HEENT: Head is normocephalic, atraumatic. Anicteric sclerae and pale conjunctivae. Mucous membranes moist. Neck: Supple. No JVD noted. No carotid bruits. No lymphadenopathy. No thyromegaly. Cardiovascular: S1 and S2 heard. No murmurs, gallops, or rubs. Regular rate and rhythm. Respiratory: Clear bilaterally to auscultation. No work of breathing or using accessory muscles. Abdomen: Soft, distended. Ascites noted and a little bit worse when compared with yesterday. Extremities: No clubbing or cyanosis. Mild edema in both lower extremities. Neurological: Patient alert and oriented x3. Able to move all 4 extremities. LABORATORY DATA: White cell count 9.18, hemoglobin 13.6, hematocrit 39.5, platelets 327,000. Sodium 122, potassium 4.2, chloride 81, BUN 12, creatinine 0.5. ASSESSMENT AND PLAN: 1. Malignant ascites secondary to possible pancreatic cancer. Oncology has started this patient on chemotherapy a couple of days ago and he is tolerating the medications very well. We are going to continue with the same management. We will follow their lead. Dr. Wilkes is following this patient. 2. Small-bowel obstruction, resolved. 3. Volume overload. The patient continues with Lasix. Yesterday, he was receiving 40 mg IV q.12 hours, but considering that the sodium is low, we are going to change to oral. In this case, it will be Lasix 40 mg p.o. daily. We are going to continue with the same treatment. 4. 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 We are going to definitely continue with less furosemide. Also, we are going to check BMP tomorrow and see how this patient does. 5. Hypertension. Blood pressure definitely has improved because during the last 4 days the blood pressure has been borderline low in the range of 90s and 80s. At this time, we are going to continue with the same management. We have stopped all antihypertensive medications. 6. Code status. We have talked with the family and they decided on code status DNI and DNR. 7. Severe constipation, improved. cc: Hernesto Breen MD
[2016-12-19 16:01] LABS: INR 1.08; PROTIME 11.4 Seconds (9.2-11.7); PTT 30.6 Seconds (22.0-36.0)
[2016-12-19] MEDS: MILK OF MAGNESIA PO SCH (20:38)
[2016-12-19] MEDS: FLOMAX PO SCH (20:38)
[2016-12-19] MEDS: REMERON SOLTAB PO SCH (20:39)
[2016-12-19] MEDS: LEVAQUIN 500 MG/D5W 100 ML IV SCH (20:40)
[2016-12-20] MEDS: DILAUDID PCA VIAL IV PRN (03:59)
[2016-12-20] MEDS: REGLAN IV SCH ×3 (05:54→17:15)
[2016-12-20] MEDS: PROTONIX IV SCH (05:59)
[2016-12-20 07:23] LABS: EOS# 0.04 X1000 (0.0-0.7); EOS% 0.4 % (0.0-10.0); HEMOGLOBIN 13.4 g/dL (14.0-18.0); IMM GRAN# 0.02 X1000 (0.0-0.04); IMM GRAN% 0.2 % (0.0-0.5); LYMPH# 0.45 X1000 (1.2-3.4); LYMPH% 4.5 % (20.5-51.1); MANUAL DIFF NEEDED? YES; MCH 30.2 PG (27-31); MCHC 34.4 g/dL (33-37); MONO# 0.07 X1000 (0.11-0.59); MONO% 0.7 % (1.7-9.3); MPV 9.8 FL (7.4-10.4); NEUT% 94.2 % (42.2-75.2); PLT 310 X1000 (130-400); RBC 4.43 XMIL (4.7-6.1)
[2016-12-20 07:46] LABS: BANDS 2 % (0-1); LYMPHS 6 % (21-51)
[2016-12-20 07:55] LABS: AGAP 13; ALBUMIN 2.9 g/dL (3.5-5.0); ALKALINE PHOSPHATASE 62 U/L (32-122); BUN 10 mg/dL (8-22); CALCIUM 8.1 mg/dL (8.8-10.2); CHLORIDE 79 mmol/L (98-107); COSMO 246; GOT 51 U/L (10-34); GPT 40 U/L (10-44); POTASSIUM 4.3 mmol/L (3.5-5.1); SODIUM 122 mmol/L (136-145); TCO2 30 mmol/L (25-35); TOTAL BILIRUBIN 0.89 mg/dL (0.20-1.00); TOTAL PROTEIN 5.9 g/dL (6.3-8.3)
[2016-12-20] MEDS: MIRALAX PO SCH ×2 (08:10→20:44)
[2016-12-20] MEDS: NEURONTIN PO SCH ×3 (08:11→17:06)
[2016-12-20] MEDS: LASIX PO SCH (08:11)
[2016-12-20] MEDS: DULCOLAX PR SCH (08:14)
[2016-12-20] MEDS: LOPRESSOR PO SCH ×2 (08:15→20:45)
[2016-12-20] MEDS: LACTULOSE PO SCH ×2 (08:15→20:45)
[2016-12-20] MEDS: NICODERM PATCH TD SCH (08:15)
[2016-12-20] MEDS ORDERED: SAMSCA PO ONE (08:26)
[2016-12-20] MEDS: ZOFRAN IV PRN (10:37)
--- NOTE | 2016-12-20 11:26 | Diag Imaging Result Document ---
PROCEDURE NAME: US PELVIC NON-OB (LIMITED) - 12/20/2016 LIMITED ULTRASOUND OF THE MALE PELVIS: COMPARISON: Ultrasound-guided paracentesis dated 12/14/2016. FINDINGS: Note that this was originally scheduled as an ultrasound-guided therapeutic paracentesis; however, on the pre-scan images, there was a fairly low volume of fluid, especially compared to the previous study. The small fluid pockets that were identified contains septations indicating loculation. I feel that only a relatively small amount of fluid could be aspirated at this time, and there is a decreased chance of a significant therapeutic response. I discussed these findings with the patient, and he elected to defer the procedure until more fluid had accumulated. IMPRESSION: 1. Only a small amount of peritoneal fluid with several of the small pockets containing loculations as described. 2. For these reasons, the therapeutic paracentesis was deferred. MTDD
[2016-12-20] MEDS: LOVENOX SUBQ SCH (12:23)
[2016-12-20] MEDS: LR 1,000 ML IV SCH (14:19)
[2016-12-20] MEDS: FLOMAX PO SCH (20:44)
[2016-12-20] MEDS: REMERON SOLTAB PO SCH (20:44)
[2016-12-20] MEDS: MILK OF MAGNESIA PO SCH (20:44)
[2016-12-20] MEDS: LEVAQUIN 500 MG/D5W 100 ML IV SCH (20:45)
--- NOTE | 2016-12-20 22:47 | DISCHARGE SUMMARY ---
ADMISSION DATE: 12/03/2016 DISCHARGE DATE: 12/20/2016 CONSULTATIONS: 1. Gio Beltran M.D. with Gastroenterology. 2. Eduardo Wilkes M.D. with Hematology/Oncology. 3. EVI lAford with Palliative Care. PERTINENT PROCEDURES: 1. Abdominal ultrasound showed ascites around the liver and contracted gallbladder. 2. Echocardiogram: She had an EF of 60%. 3. Chest, abdomen, pelvis CT: Showed trace bilateral effusions and bibasilar atelectasis, nonspecific tiny noncalcified nodules in the right lung that most likely represents noncalcified granulomata, large volume ascites and multiple hypodensities throughout the liver parenchyma, heterogeneous mass at the lower pole of the right kidney, neoplasm cannot be excluded, focal thickening at the antrum of the stomach, gastric neoplasm should be excluded versus focal gastritis, very mild focal narrowing and wall thickening at the distal sigmoid colon just superior to the rectum, multiple distended loops of colon, small bowel that were nonspecific, obstruction cannot be completely excluded. 4. Head CT showed no evidence of acute intracranial pathology. Nuclear body scan showed mild increased uptake associated with both represent degenerative uptake, essentially unremarkable otherwise. 5. EGD performed by Dr. Kaur. 6. Colonoscopy with polypectomy performed by Dr. Kaur. 7. Sigmoid colon polyp shows a tubular adenoma. DISCHARGE DIAGNOSES: 1. Malignant ascites secondary to possible pancreatic cancer being followed by Dr. Wilkes. Patient was started on chemotherapy and tolerating well. Being discharged home today to follow up with Dr. Wilkes to continue treatment. 2. Small bowel obstruction resolved. 3. Volume overload resolved. 4. 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 Lasix dose will continue but will be decreased. 5. Hypertension. Continue medications. 6. Severe constipation improved. 7. DNR level 1. 8. Hyponatremia. Patient given 2 doses of Samsca, stable. 9. Cirrhosis of the liver followed by Dr. Kaur. 10. Gastroesophageal reflux disease. Continue PPI. 11. Benign prostatic hypertrophy with elevated levels followed by Dr. Rosales. 12. Tobacco abuse. Cessation discussed. Patient was started on nicotine patch while inpatient. HOSPITAL COURSE: Briefly, Mr. Sheehan is a 56-year-old, male who carries a past medical history of BPH with elevated PSA being followed by Dr. Rosales as well as cirrhosis being worked up by Dr. Kaur. This had also been worked up just prior to admission. Alcohol abuse, tobacco abuse, thyroid cyst, GERD, hypertension. The patient came to the ED with complaints of abdominal pain, worsening nausea, vomiting and constipation with loss of appetite. On a previous admission on 11/29/2016 he had a paracentesis performed where 7.5 L of fluid were drained. It was found that Mr. Sheehan's ascites was positive for malignancy likely secondary to pancreatic cancer. He did have elevation of the CA-19-9. Dr. Wilkes was consulted and the patient has started chemotherapy and will continue following with Dr. Wilkes outpatient for chemotherapy. Patient also underwent a paracentesis where they removed 5.3 L of turbid yellowish fluid. He also underwent an EGD and colonoscopy by Dr. Castro. He did have an NG tube placed by Dr. Kaur during this procedure. His esophagus entire length appears to be normal. No esophagitis, webs, rings, or varices were seen. The next day the patient underwent a colonoscopy and polypectomy. No tumors, cancers or masses were found in the colon. The specimen that was sent off did show a tubular adenoma and again the patient was followed by Dr. Wilkes and was initiated on chemotherapy. His NG tube was removed. He started having bowel movements. Dr. Valerio has spoken with Dr. Wilkes and they feel that he is appropriate for discharge home today, and to continue to follow up with Dr. Wilkes for chemotherapy. Discharge held due to patient needing Port-a-Cath placed. VITAL SIGNS AT TIME OF DISCHARGE: Temperature is 97.9 degrees, heart rate 117, respirations 14, blood pressure 109/72, O2 98% on room air. DISCHARGE DIET: GI soft with Ensure with breakfast. DISCHARGE MEDICATIONS PER DR. VALERIO: 1. Aspirin 81 mg p.o. daily. 2. Lasix 40 mg p.o. b.i.d. 3. Neurontin 600 mg p.o. t.i.d. 4. Lactulose 30 mg p.o. b.i.d. 5. Milk of Magnesia 30 mL p.o. at bedtime. 6. Percocet 1 each p.o. q.4 hours. 7. Protonix 40 mg p.o. daily. 8. MiraLAX 17 g p.o. b.i.d. 9. Flomax 0.4 mg p.o. at bedtime. FOLLOW UP: 1. Patient is being discharged home. 2. He will follow up with Dr. Kaur as well as his primary care physician, Dr. Steffany Weeks, and with Dr. Eduardo Wilkes in 1 week [address] Dr[address] Rosales. 3. Patient can return to the ED for any worsening of symptoms. DISCHARGE TIME: 35 minutes. Dictated by EVI Rojas for Hernesto Breen MD cc: MD Steffany Zuniga MD MTDD
[2016-12-21] MEDS: REGLAN IV SCH ×4 (00:05→17:25)
[2016-12-21] MEDS: DILAUDID PCA VIAL IV PRN (03:38)
[2016-12-21] MEDS: PROTONIX IV SCH (06:11)
[2016-12-21] MEDS: SODIUM CHLORIDE 0.9% INJ SCH (06:11)
[2016-12-21 06:29] LABS: MANUAL DIFF NEEDED? NO
[2016-12-21 06:35] LABS: EOS# 0.05 X1000 (0.0-0.7); EOS% 3.2 % (0.0-10.0); HEMATOCRIT 38.9 % (42.0-52.0); HEMOGLOBIN 13.5 g/dL (14.0-18.0); LYMPH# 0.32 X1000 (1.2-3.4); LYMPH% 20.3 % (20.5-51.1); MCH 30.5 PG (27-31); MCHC 34.7 g/dL (33-37); MONO# 0.04 X1000 (0.11-0.59); MONO% 2.5 % (1.7-9.3); PLT 336 X1000 (130-400); RBC 4.42 XMIL (4.7-6.1)
[2016-12-21 06:59] LABS: AGAP 12; ALKALINE PHOSPHATASE 69 U/L (32-122); BUN 9 mg/dL (8-22); CALCIUM 8.6 mg/dL (8.8-10.2); CHLORIDE 83 mmol/L (98-107); COSMO 260; GOT 55 U/L (10-34); GPT 52 U/L (10-44); POTASSIUM 5.6 mmol/L (3.5-5.1); SODIUM 129 mmol/L (136-145); TCO2 34 mmol/L (25-35); TOTAL BILIRUBIN 1.04 mg/dL (0.20-1.00)
[2016-12-21] MEDS: NICODERM PATCH TD SCH (09:50)
--- NOTE | 2016-12-21 10:42 | CONSULTATION ---
DATE OF CONSULTATION: 12/21/2016 REASON FOR CONSULTATION: Port placement. HISTORY OF PRESENT ILLNESS: A 56-year-old male who was admitted recently with abdominal discomfort and swelling, nausea, vomiting, constipation, and decreased appetite. He has had an extensive workup including a recent EGD and colonoscopy, abdominal x-rays, abdominal ultrasound, chest, abdomen, and pelvis CT scan, and paracentesis, ultimately leading to a new diagnosis of pancreatic cancer when evaluation of the ascites fluid was undertaken. I have been asked to place a port for chemotherapy. PAST MEDICAL HISTORY: Hypertension, BPH, gastroesophageal reflux disease. PAST SURGICAL HISTORY: Vasectomy and prostate biopsies. HOME MEDICATIONS: Lisinopril, labetalol, aspirin, Flomax, Neurontin, Norvasc, Protonix. ALLERGIES: No known drug allergies. FAMILY HISTORY: Coronary artery disease and prostate cancer in his father. SOCIAL HISTORY: He drinks 8 to 9 beers a day, but has stopped over the last month or so. He smokes 1 pack per day. He denies illicit drug use. REVIEW OF SYSTEMS: Ten systems reviewed and negative except as noted above. PHYSICAL EXAMINATION: Vital Signs: Temperature 98.2 degrees, pulse 121, blood pressure 126/90. General: He is a thin, well-developed male in no distress, who looks his stated age. HEENT: Normocephalic, atraumatic. Extraocular muscles intact. Pupils equal, round, reactive to light. Sclerae anicteric. Cardiovascular: Regular rate and rhythm. Respiratory: No work of breathing. Gastrointestinal: Soft, protuberant, nontender. No mass appreciated. LABORATORY: White blood cell count 1.6, hemoglobin 13.5, hematocrit 38.9, platelet count 336,000. Sodium 129, potassium 5.6, chloride 93, CO2 of 34, BUN 9, creatinine 0.5, glucose 133, total bilirubin 1. ASSESSMENT AND PLAN: This is a 56-year-old male with a new diagnosis of pancreatic cancer, in need of a port placement for chemotherapy. I discussed the risks, benefits, and alternatives with him including bleeding, infection, port malfunction, deep vein thrombosis, pneumothorax, and other imponderables. He understands and agrees to proceed. cc: Bunny Hurst MD
--- NOTE | 2016-12-21 11:35 | PROGRESS NOTE ---
DATE: 12/20/2016 SUBJECTIVE: The patient is sitting in the bed. He does report having some nausea. He is tolerating his diet. They were planning on going a paracentesis today, but on x-ray evaluation, there was only a small amount of ascitic fluid, and it was decided to postpone the procedure. The patient had his first chemotherapy on Tuesday. He tolerated it fairly well except for some pain and nausea. He does have a [employer] pump available. He has plans to have a port placed, most likely tomorrow, and then possible discharge to follow up with Dr. Wilkes for continued chemotherapy as recommended. OBJECTIVE: Vital Signs: Temperature 97.9 degrees, pulse 117, respirations 14, blood pressure 109/72. Generally, the patient is awake and alert in no acute distress. Cardiovascular: Regular rate and rhythm. Lung sounds essentially clear. Abdomen with some distention/ascites noted. Extremities with some bilateral lower extremity edema noted. DIAGNOSTIC RESULTS: Laboratory: Hematology: White count 10.03, hemoglobin 13.4, hematocrit 39.0, MCV 88.0, platelets 310,000. Chemistry: Sodium 122, potassium 4.3, chloride 79, CO2 of 30. BUN 10, creatinine 0.5, glucose 125. ASSESSMENT AND PLAN: 1. Malignant ascites, most likely secondary to pancreatic cancer. Oncology, Dr. Wilkes, is following, and he had his first chemotherapy treatment on Tuesday. 2. Nausea, most likely related to onset of chemotherapy. 3. Fluid volume overload. He has received diuretics. 4. Constipation. Continue laxative. Continue other orders and, we will continue to follow and be available as needed. Dictated by EVI Kam for Gregorio Kaur MD cc: EVI Reyes MD
[2016-12-21] MEDS: LOPRESSOR PO SCH (13:40)
[2016-12-21] MEDS ORDERED: XYLOCAINE 1%/EPI 1:100,000 ONE (13:48)
[2016-12-21] MEDS ORDERED: NS 250 ML ONE (13:48)
[2016-12-21] MEDS ORDERED: HEPARIN ONE (13:48)
[2016-12-21] MEDS ORDERED: MARCAINE 0.25% PF/EPI 1:200,000 ONE (13:49)
[2016-12-21] MEDS ORDERED: NORCO-7.5 PO PRN (15:22)
[2016-12-21] MEDS ORDERED: DIPRIVAN 1% ONE (15:36)
[2016-12-21] MEDS ORDERED: VERSED ONE (15:36)
[2016-12-21] MEDS ORDERED: XYLOCAINE-MPF 2% ONE (15:45)
[2016-12-21] MEDS ORDERED: ZOFRAN ONE (15:45)
[2016-12-21] MEDS ORDERED: ANESTHESIA PB SET 88 IN 5742 ONE (15:46)
[2016-12-21] MEDS ORDERED: DECADRON ONE (15:46)
[2016-12-21] MEDS ORDERED: EXTENSION SET 32 IN 4522 ONE (15:46)
[2016-12-21] MEDS ORDERED: LR 1,000 ML ONE (15:46)
--- NOTE | 2016-12-21 15:58 | Diag Imaging Result Document ---
PROCEDURE NAME: CHEST-PORTABLE - 12/21/2016 SINGLE FRONTAL RADIOGRAPH OF THE CHEST: COMPARISON: 12/03/2016. FINDINGS: There has been interval placement of a right chest port. The tip projects over the lower SVC in the expected position. There is no evidence of pneumothorax post placement. There has been interval development of a dense opacity at the left lung base suggesting a possible effusion with adjacent atelectasis and/or infiltrate. The right lung remains clear. Cardiac silhouette is stable. IMPRESSION: 1. Newly placed right chest port as described with no evidence of pneumothorax post placement. 2. Apparent interval development of a [id number] size left effusion with adjacent atelectasis and/or infiltrate at the left lung base.
--- NOTE | 2016-12-21 16:07 | OPERATIVE NOTE ---
PROCEDURE DATE: 12/21/2016 PREOPERATIVE DIAGNOSIS: Pancreatic cancer. POSTOPERATIVE DIAGNOSIS: Pancreatic cancer. PROCEDURE: Insertion of [id number] with fluoroscopic and ultrasound guidance. SURGEON: Bunny Hurst MD. ANESTHESIA: General. ESTIMATED BLOOD LOSS: 3 mL. COMPLICATIONS: None apparent. SPECIMENS: None. FINDINGS: The right internal jugular vein was visualized with the Site-R[facility] ultrasound. It was found to be compressible and patent and without thrombus. Fluoroscopic imaging revealed successful placement of the wire into the right atrium followed by placement of the catheter with the tip positioned at the superior vena cava right atrial junction. TECHNIQUE: He was brought to the operating room and placed supine on the table. General anesthesia was induced. He was prepped and draped in usual sterile fashion. 0.25% Marcaine with epinephrine was used to anesthetize our incisions and incision was made below the right clavicle. Dissection was carried down through the subcutaneous tissue with cautery. A pocket was created anterior to the fascia with cautery and blunt finger dissection. The right internal jugular vein was visualized with the ultrasound and it was found to be patent. The skin over the vein was anesthetized with the Marcaine and the skin was incised with 11 blade. The vein was accessed with 1 stick with a needle under ultrasound guidance. The wire passed through the needle into the vein. Fluoroscopy confirmed proper placement of the wire. The wire was fixed to the drape. The tract between the 2 incisions was anesthetized subcutaneously with the Marcaine and the catheter was tunneled subcutaneously from the lower incision out through the neck incision. The dilator and sheath were passed over the wire. The wire and dilator were removed. The catheter was passed into the sheath. The sheath was removed. The tip of the catheter was positioned to the appropriate junction with fluoroscopic imaging. The catheter was cut to size and fixed to the port. The port was anchored to the chest fascia with 2-0 Surgipro at 2 o'clock, 6 o'clock, 10 o'clock. The port was accessed and rodrigo back blood easily and was flushed with heparin saline easily. The incisions were closed with interrupted subcutaneous 3-0 Polysorb and a running 4-0 subcuticular Monocryl and Steri-Strips. There were no apparent complications. He was awakened in stable condition and transferred to the recovery room. cc: Bunny Hurst MD
[2016-12-21] MEDS: DULCOLAX PR SCH (17:23)
[2016-12-21] MEDS: LACTULOSE PO SCH (17:24)
[2016-12-21] MEDS: LASIX PO SCH (17:24)
[2016-12-21] MEDS: NEURONTIN PO SCH ×2 (17:24)
[2016-12-21] MEDS: MIRALAX PO SCH (17:24)
[2016-12-21] MEDS: LOVENOX SUBQ SCH (17:25)
[2016-12-21 18:24] VITALS: BP 103/74
--- NOTE | 2016-12-23 02:34 | DISCHARGE SUMMARY ---
ADMISSION DATE: 12/03/2016 DISCHARGE DATE: 12/21/2016 ADDENDUM REPORT The patient was set to be discharged on 12/20/2016. However, he will get his Port-A-Cath for chemotherapy placed today by Dr. Bunny Hurst, and then the patient will be ready for discharge to home and follow up with Dr. Wilkes to continue with his chemotherapy. We also did note that the patient's white count had gone from [address] Monahan spoke with Dr. Wilkes, he still felt that the patient was appropriate for discharge today. Dictated by EVI Rojas for Franko Leonard MD cc: MD Steffany Guzman MD MTDD
== END 2016-12-21 18:59 | disposition home health service (06) ==
LOC: ED 08:17 → EDIPHOLD 13:36 → SUATTDRO 13:36 → 3S 14:17 → 4N 12-05 17:54 → 3N 12-17 13:38
PROVIDERS: ATTEND Internal Medicine